=== PATIENT | female | born 1955 | race Caucasian/White ===

== ENCOUNTER 2020-11-11 12:21 | Inpatient (IN) | payer MEDICARE ==
--- NOTE | 2020-11-11 13:08 | RAD ---
Exam: Chest one view HISTORY:Weakness Comparison: None FINDINGS: Cardiac silhouette: Normal Aorta: Unremarkable Pulmonary vessels: Normal Costophrenic angles: Clear LUNGS: Interstitial opacities in the lung bases. Pneumothorax: None Osseous abnormalities: None IMPRESSION: Bibasilar interstitial opacities.
[2020-11-11 13:15] LABS: #Basophils 0.1 thou/uL (0.0-0.2); #Eosinphils 0.2 thou/uL (0.0-0.7); #Lymphocytes 2.3 thou/uL (1.20-3.40); #Monocytes 1.7 thou/uL (0.11-0.59); #Neutrophils 13.6 thou/uL (1.40-6.50); %Basophils 0.4 % (0.0-1.0); %Lymphocytes 12.9 % (21.0-51.0); %Monocytes 9.3 % (0.0-10.0); %Neutrophils 76.4 % (42.0-75.0); Hemoglobin 9.7 g/dL (12.0-16.0); Mean Corpuscular HGB CONC 32.3 g/dL (32.0-36.0); Mean Platelet Volume 7.5 fL (7.4-10.4); Platelet Count 662 thou/uL (130-400); RBC Distribution Width 14.7 % (11.5-14.5); Red Blood Cell (RBC) Count 3.35 mill/uL (4.20-5.40); White Blood Cell (WBC) Count 17.8 thou/uL (4.8-10.8)
[2020-11-11 13:37] LABS: ALT (SGPT) 47 U/L (8-55); AST (SGOT) 60 U/L (5-34); Albumin 3.8 g/dL (3.4-4.8); Alkaline Phosphatase 78 U/L (40-110); Anion Gap 17 mmol/L (10-20); BUN (Urea Nitrogen) 45 mg/dL (9.8-20.1); Bilirubin, Total 0.4 mg/dL (0.2-1.2); Calc. Creatinine Clearance 0 mL/min (70-130); Calcium 9.4 mg/dL (7.8-10.44); Carbon Dioxide 22 mmol/L (23-31); Chloride 103 mmol/L (98-107); Globulin 3.8 g/dL (2.4-3.5); Glucose 96 mg/dL (80-115); Magnesium 2.2 mg/dL (1.6-2.6); Protein, Total 7.6 g/dL (6.0-8.3); Sodium 138 mmol/L (136-145)
[2020-11-11 14:01] LABS: Bacteria/HPF None Seen HPF (None Seen); Bilirubin Negative (Negative); Blood, Urine Negative (Negative); Clarity Clear (Clear); Glucose, Urine (Dipstick) Normal (Negative); Ketone, Urine Negative (Negative); Leukocyte 25 Leu/uL (Negative); Nitrite Negative (Negative); Protein, Urine (Dipstick) Negative (Neg-Trace); RBC/HPF 0-3 HPF (0-3); Specific Gravity, Urine 1.018 (1.002-1.036); Urobilinogen Normal mg/dL (Less than 2); WBC/HPF 0-3 HPF (0-3)
--- NOTE | 2020-11-11 14:51 | RAD ---
XR Foot Rt 3 View STANDARD History: Evaluate for osteomyelitis Comparison: None. Findings: Soft tissue swelling along the proximal tuberosity fifth metatarsal. Old stress changes flaca ng the lateral fifth metatarsal diaphysis. No acute displaced fracture or malalignment. Erosive change of the distal phalanx tuft middle toe. Rahman perficial radiopaque punctate opacity along the medial aspect distal phalanx middle toe. Impression: 1. Soft tissue swelling along the fifth proximal tuberosity without underlying evidence of osteomyeli tis. MRI recommended if clinically warranted. 2. Tuft erosion distal phalanx middle toe may be chronic as erosions appear well-corticated. 3. Healing/healed stress changes along the mid aspect small toe metatarsal diaphysis.
[2020-11-11] MEDS ORDERED: Cefepime 1 GM VIAL ONE (15:14)
[2020-11-11] MEDS ORDERED: traMADol HCl 50 MG TAB ONE (15:14)
--- NOTE | 2020-11-11 15:53 | PDOC.FPRHP ---
- History of Present Illness Chief Complaint: weakness History of Present Illness: Pt is a 65 yo F with PMH of HTN, CKD3, CHF, neuropathy, hypothryoidism, chronic pain, anxiety who presents to the ED with chief complaint of weakness. Her home health nurse found her today covered in her feces, in the same spot that they left her after visiting her yesterday. She endorses diarrhea. She is a poor historian and has a sad/flat affect. Denies CP, abdominal pain, no blood in stool, no cough. She ambulates as baseline with the help of a walker. She endorses medicine compliance. She was recently released from [facility] where she was hospitalized for a UTI. ED Course: In the ED, patient initially sat'ing 100% on RA. Upon re-eval by ED provider, patient noted to be 90% and placed on 2L NC with improvement to 98%. Initially tachycardic with HR 100s, now 90s. Given Cefepime and Vanc. Also given tramadol 50 mg for chronic pain. - Allergies/Adverse Reactions Allergies Allergy/AdvReac Type Severity Reaction Status Date / Time loratadine [From Claritin] Allergy Verified 11/11/20 15:51 Penicillins Allergy Verified 11/11/20 15:50 - History PMHx: HTN, CKD3, CHF, neuropathy, hypothryoidism, chronic pain, anxiety PSHx: denies FHx: non contributory Social: Lives at home alone with HH. denies alcohol,drugs or tobacco - Review of Systems General: reports: fatigue. denies: fever/chills, weight/appetite/sleep changes Eyes: denies: eye pain, vision changes ENT: denies: nasal congestion, rhinorrhea Respiratory: denies: cough, shortness of breath Cardiovascular: denies: chest pain, palpitation Gastrointestinal: denies: nausea, vomiting Genitourinary: denies: dysuria, polyuria Skin: denies: jaundice, itching Neurological: reports: weakness. denies: syncope Psychological: reports: anxiety (history of), depression (history of) - Vital signs BP 135.69, HR 106, RR 17, Temp 98.7F, O2 sat 96% on 2L, 117kg - Physical Exam -Constitutional: dishelved. patient is dry on exam HEENT: normocephalic and atraumatic, EOMI, grossly normal hearing, other (pupils dilated, but reactive to light) Neck: supple, FROM Heart: normal S1/S2, other (b/l edema 2+ pitting up to the knees. tachycardic) Lungs: CTAB, no respiratory distress Abdomen: soft, non-tender Musculoskeletal: normal structure, normal tone Neurological: no focal deficit, CN II-XII intact -Skin: mild redness of b/l LE. multiple pressure ulcers Heme/Lymphatic: no purpura, no petechia -Psychiatric: flat and sad affect. poor historian FMR H&P: Results - Labs Result Diagrams: 11/11/20 13:04 11/11/20 13:04 Lab results: WBC 17.8 thou/uL (4.8-10.8) H 11/11/20 13:04 Hgb 9.7 g/dL (12.0-16.0) L 11/11/20 13:04 Hct 30.2 % (36.0-47.0) L 11/11/20 13:04 MCV 90.0 fL (78.0-98.0) 11/11/20 13:04 Plt Count 662 thou/uL (130-400) H 11/11/20 13:04 Neutrophils % 76.4 % (42.0-75.0) H 11/11/20 13:04 Sodium 138 mmol/L (136-145) 11/11/20 13:04 Potassium 4.0 mmol/L (3.5-5.1) 11/11/20 13:04 Chloride 103 mmol/L (98-107) 11/11/20 13:04 Carbon Dioxide 22 mmol/L (23-31) L 11/11/20 13:04 BUN 45 mg/dL (9.8-20.1) H 11/11/20 13:04 Creatinine 1.75 mg/dL (0.6-1.1) H 11/11/20 13:04 Glucose 96 mg/dL (80-115) 11/11/20 13:04 Lactic Acid 1.2 mmol/L (0.5-2.2) 11/11/20 14:11 Calcium 9.4 mg/dL (7.8-10.44) 11/11/20 13:04 Total Bilirubin 0.4 mg/dL (0.2-1.2) 11/11/20 13:04 AST 60 U/L (5-34) H 11/11/20 13:04 ALT 47 U/L (8-55) 11/11/20 13:04 Alkaline Phosphatase 78 U/L (40-110) 11/11/20 13:04 B-Natriuretic Peptide 169.2 pg/mL (0-100) H 11/11/20 13:04 Serum Total Protein 7.6 g/dL (6.0-8.3) 11/11/20 13:04 Albumin 3.8 g/dL (3.4-4.8) 11/11/20 13:04 Urine Ketones Negative mg/dL (Negative) 11/11/20 13:40 Urine Blood Negative (Negative) 11/11/20 13:40 Urine Nitrite Negative (Negative) 11/11/20 13:40 Ur Leukocyte Esterase 25 Jigna/uL (Negative) A 11/11/20 13:40 Urine RBC 0-3 HPF (0-3) 11/11/20 13:40 Urine WBC 0-3 HPF (0-3) 11/11/20 13:40 Ur Squamous Epith Cells 11-20 HPF (0-3) A 11/11/20 13:40 Urine Bacteria None Seen HPF (None Seen) 11/11/20 13:40 - EKG Interpretation EKG: Sinus tachycardia at 112, no ST segment changes - Radiology Interpretation Chest x-ray Status: report reviewed by me Additional comment: bibasilar interstitial opacities FMR H&P: A/P - Plan Sepsis 2/2 to hospital acquired PNA vs wounds -patient meets sepsis criteria with CXR showing bibasilar interstitial opacities, WBC of 17.8, tachycardia to 105 -UA neg -received Vanc and Cefepime in ED, cultures pending -1L of NS in ED, will continue MIVF as patient was dry on exam -procal pending -COVID negative -Continue Cefepime, Vanc, Levofloxacin for HAP Chronic right plantar ulcer -follow up with outpatient podiatry -foot XR shows soft tissue swelling along fifth proximal tuberosity with no evidence of osteo -wound care consulted. she also has several other pressure ulcers -could also be contributing to her sepsis picture B/l LE edema -history of CHF, patient unsure of Lasix dose she takes at home -unsure if history of DVT -also has redness of b/l legs, likely chronic stasis. Unlikely bilateral cellulitis -will follow up with dopplers Normocytic Anemia -Hgb of 9.7 on admission -follow up iron studies Diarrhea -C diff stool studies pending -precautions until then HTN -aware, continue home meds CKD3 -aware, avoid nephrotoxic meds as able -Cr elevated on admission, unsure of baseline CHF -aware, continue home meds -unsure of patient's last echo Neuropathy -aware, continue home meds Hypothryoidism -aware, continue home meds Chronic pain -aware, continue home meds Anxiety -aware, continue home meds Diet: HH, dietary consult pending Fluids: LR @ 100mL/hr DVT ppx: Lovenox Code: MEDS ONLY PCP: kelly Stewart call Dispo: admit to inpatient tele. Anticipate LOS > 48 hours. PT, OT wound care, CM and palliative to assist in dispo planning to IP rehab FMR H&P: Upper Level - Plan Date/Time: 11/11/20 2083 I, [Nidia Tian], have evaluated this patient and agree with findings/plan as outlined by credit intern resident. Pertinent changes/additions are listed here. 65 yo F with PMH of HF, depression/anxiety, HTN presents after being found by home health on the ground where they last left her in 24 hours before covered in feces. She was recently discharged from [facility] a week ago for treatment of UTI. Per ERMD SpO2 dropped to 90% on RA and was placed on 2L of oxygen. CXR shows bibasilar interstitial opacities. She was tachycardic with elevated WBC so was given vanc & cefepime. Also with a right foot ulcer that podiatry follows with her in which R foot XR shows soft tissue swelling of 5th metatarsal but no evidence of osteomyelitis. She has multiple moisture associated skin wounds that the patient cannot tell me how long shes had. Her left lower extremity has 3+ edema with associated redness and tenderness. #Sepsis 2/2 hospital acquired pneumonia vs. Cellulitis/skin wounds: Tachycardic, leukocytosis- CXR with bilateral bibasilar infiltrates and multiple skin ulcers. Lower legs with erythema Given Vanc & Cefepime & in ER and will continue to cover for hospital acquired PNA adding on levaquin. Pending procal. Patient requiring 2L of O2 but able to wean to 95% on RA while in room. Continue monitoring respiratory status. BCx pending. #BARB vs. CKD: Cr 1.75, no prior labs. Will start fluids and see if improves in AM. #Anemia: Hgb 9.7. Acute vs. chronic. Iron studies #Thrombocytosis: Plt 662. No clinical sxs. Monitor with CBC. #LE swelling: Left leg greater than right. Will get ddimer & bilateral venous dopplers. Also consider cellulitis vs. chronic venous stasis. Empirically treating for cellulitis & getting dopplers to r/o DVT #Diarrhea: Recent abx use for prior UTIs. Cdiff and stool cultures pending. #Physical deconditioning: CM on board, plan for placement for rehab. PT/OT on board. #HF: Continue home meds ,monitor clinical status Admit: tele/inpt dvt ppx: lovenox Addendum - Attending - Attending Attestation Date/Time: 11/11/202020 I personally evaluated the patient and discussed the management with Dr. Fernando. I agree with the History, Examination, Assessment and Plan documented above with any addition or exceptions noted below. The patient presented with weakness after being found covered in feces by home h ealth. She has numerous skin ulcerations which are the likely source of infection. cultures pending. Wound care is being consulted. Pt's trops are in nstemi range. Will continue to trend and anticoagulate the patient. Getting D- dimer and lower extremity dopplers to evaluate discrepancy in leg size. Will get stool for c.diff for diarrhea. Will need cardiology consult in a.m. Monitor on telemetry.
[2020-11-11] MEDS ORDERED: Ondansetron ODT 4 MG TAB PO PRN (17:24)
[2020-11-11] MEDS ORDERED: Ondansetron PF 4 MG/2 ML Vial IVP PRN (17:24)
[2020-11-11] MEDS ORDERED: Acetaminophen 650 MG Suppository PR PRN (17:24)
[2020-11-11 17:27] LABS: SARS-CoV-2 NAA Rapid Test Not Detected (NotDetected)
[2020-11-11 17:54] LABS: Amphetamine Not Detected (NotDetected); Barbiturates Screen Not Detected (NotDetected); Benzodiazepine Screen Not Detected (NotDetected); Cocaine Metabolite Screen Not Detected (NotDetected); Medtox Control Line Valid? VALID (VALID); Medtox Reader # READER 4; Methadone Not Detected (NotDetected); Methamphetamine Not Detected (NotDetected); Opiate Screen Not Detected (NotDetected); Oxycodone Screen Not Detected (NotDetected); Phencyclidine (PCP) Not Detected (NotDetected); THC/Cannabinoid Screen Not Detected (NotDetected); Tricyclic Screen Not Detected (NotDetected)
[2020-11-11 18:07] LABS: Troponin I 0.772 ng/mL (< 0.028)
[2020-11-11 20:01] LABS: Hemoglobin A1c 5.3 % (4.0-6.0)
[2020-11-11 21:56] VITALS: BMI 49.5
[2020-11-11] MEDS: Acetaminophen 325 MG TAB PO PRN (22:23)
[2020-11-11] MEDS: Enoxaparin Sodium 120 MG/0.8 ML SYRINGE SC SCH (22:24)
[2020-11-11] MEDS: Lactated Ringer's 1,000 ML IV SCH (22:24)
--- NOTE | 2020-11-11 22:35 | ULT ---
EXAM: Bilateral lower extremity venous Doppler US HISTORY: bilateral lower extremity edema and pain FINDINGS: Grayscale, color-flow, Doppler evaluation, spectral analysis of the bilateral lower extremities venou s structures is performed with 2-D imaging. The bilateral common femoral, superficial femoral, popliteal, posterior tibial, proximal greater saphenous and profunda femoral veins are imaged. There is normal luminal compressibility, flow, and augmentation in the visualized deep venous structu res of the bilateral lower extremities. IMPRESSION: No evidence of a deep vein thrombosis in either lower extremity.
[2020-11-12] MEDS: Lactated Ringer's 1,000 ML IV SCH ×3 (02:24→13:30)
[2020-11-12] MEDS: Cefepime 2 GM in Sodium Chloride 0.9% 100 ML IVPB SCH (02:24)
[2020-11-12 04:57] LABS: #Basophils 0.1 thou/uL (0.0-0.2); #Eosinphils 0.2 thou/uL (0.0-0.7); #Lymphocytes 1.8 thou/uL (1.20-3.40); #Neutrophils 8.9 thou/uL (1.40-6.50); %Basophils 0.4 % (0.0-1.0); %Eosinophils 2.1 % (0.0-10.0); %Lymphocytes 14.5 % (21.0-51.0); %Monocytes 8.7 % (0.0-10.0); %Neutrophils 74.3 % (42.0-75.0); Hemoglobin 8.4 g/dL (12.0-16.0); Mean Corpuscular HGB CONC 32.1 g/dL (32.0-36.0); Mean Corpuscular Hemoglobin 29.2 pg (27.0-31.0); Mean Corpuscular Volume 91.1 fL (78.0-98.0); Mean Platelet Volume 7.6 fL (7.4-10.4); Platelet Count 534 thou/uL (130-400); RBC Distribution Width 14.7 % (11.5-14.5); Red Blood Cell (RBC) Count 2.89 mill/uL (4.20-5.40)
[2020-11-12 05:03] LABS: Iron 31 ug/dL (50-170); Iron Binding Capacity, Total 210 mcg/dL (265-497)
[2020-11-12 05:04] LABS: ALT (SGPT) 38 U/L (8-55); AST (SGOT) 66 U/L (5-34); Albumin 2.9 g/dL (3.4-4.8); Alkaline Phosphatase 63 U/L (40-110); Anion Gap 14 mmol/L (10-20); BUN (Urea Nitrogen) 39 mg/dL (9.8-20.1); Bilirubin, Total 0.4 mg/dL (0.2-1.2); Calc. Creatinine Clearance 80 mL/min (70-130); Calcium 8.6 mg/dL (7.8-10.44); Carbon Dioxide 23 mmol/L (23-31); Chloride 108 mmol/L (98-107); Globulin 3.3 g/dL (2.4-3.5); Glucose 88 mg/dL (80-115); Iron 33 ug/dL (50-170); Iron Binding Capacity, Total 209 mcg/dL (265-497); Potassium 4.5 mmol/L (3.5-5.1); Protein, Total 6.2 g/dL (6.0-8.3); Sodium 140 mmol/L (136-145)
--- NOTE | 2020-11-12 06:54 | PDOC.FM ---
- Subjective Subjective: Patient resting comfortably in bed this AM. Only complaints are neck and pain soreness. She denies CP, SOB, abdominal pain, extremity pain. B/l LE swelling is at baseline as per patient's report. - Objective MAR Reviewed: Yes Vital Signs & Weight: Vital Signs (12 hours) Temp Pulse Resp BP Pulse Ox 11/12/20 02:37 98.4 F 90 16 118/55 L 100 11/11/20 20:20 97.4 F L 99 16 120/77 97 11/11/20 20:00 98 Weight Weight 122.924 kg I&O: 11/10/20 11/11/20 11/12/20 06:59 06:59 06:59 Intake Total 1300 Output Total 550 Balance 750 Result Diagrams: 11/12/20 04:11 11/12/20 04:11 Phys Exam - Physical Examination Constitutional: NAD dry MM Neck: no JVD Respiratory: no wheezing Cardiovascular: RRR, no significant murmur Gastrointestinal: soft, non-tender, positive bowel sounds b/l LE edema Neurological: non-focal, moves all 4 limbs Psychiatric: normal affect, A&O x 3 Deviation from normal: b/l redness and warmth. non TTP. many pressure ulcers Dx/Plan - Plan Plan: Sepsis 2/2 to hospital acquired PNA vs wounds -patient meets sepsis criteria with CXR showing bibasilar interstitial opacities, WBC of 17.8, tachycardia to 105 -UA neg -received Vanc and Cefepime in ED, cultures pending -1L of NS in ED, will continue MIVF as patient was dry on exam -COVID negative -Continue Cefepime, Vanc, for possible infection. D/c Levofloxacin (11/12) Unlikely HAP as patient is on RA, procal neg, no resp symptoms NSTEMI -patient with elevated trop .01>.772>2.570 -denies CP -EKG with no ST changes -Cardiology consulted, appreciate the recs -on Therapeutic Lovenox Chronic right plantar ulcer -follow up with outpatient podiatry -foot XR shows soft tissue swelling along fifth proximal tuberosity with no evidence of osteo. Follow up MRI today. Continue on abx as noted above -wound care consulted. she also has several other pressure ulcers -could also be contributing to her sepsis picture -ESR, CRP pending B/l LE edema -history of CHF, patient unsure of Lasix dose she takes at home -unsure if history of DVT -also has redness of b/l legs, likely chronic stasis. Unlikely bilateral c ellulitis -b/l LE dopplers neg Normocytic Anemia -Hgb of 9.7 on admission -continue to trend with clinical signs of bleeding, H/H daily Diarrhea -C diff stool studies neg -precautions until then HTN -aware, continue home meds CKD3 -aware, avoid nephrotoxic meds as able -Cr elevated on admission, unsure of baseline CHF -aware, continue home meds -unsure of patient's last echo Neuropathy -aware, continue home meds Hypothryoidism -aware, continue home meds Chronic pain -aware, continue home meds Anxiety -aware, continue home meds Diet: HH, dietary consult pending Fluids: LR @ 100mL/hr DVT ppx: Th Lovenox Code: MEDS ONLY PCP: kelly Stewart call Dispo: admit to inpatient tele. Anticipate LOS > 48 hours. PT, OT wound care, CM and palliative to assist in dispo planning to IP rehab. pending cardiology recs for NSTEMI Addendum - Attending - Attending Attestation Date/Time: 11/12/20 6238 I personally evaluated the patient and discussed the management with Dr. Fernando. I agree with the History, Examination, Assessment and Plan documented above with any addition or exceptions noted below. The patient has a cardiology referral pending for NSTEMI. Wound care on board. Pt on antibiotics as wounds appear to be the source of the infection. Getting MRI to evaluate for osteomyelitis.
[2020-11-12] MEDS ORDERED: Enoxaparin Sodium 30 MG/0.3 ML SYRINGE SC SCH ×2 (09:00)
[2020-11-12] MEDS ORDERED: Vancomycin HCl 1.75 GM in Sodium Chloride 0.9% 250 ML 300 ML IVPB SCH (09:00)
[2020-11-12] MEDS ORDERED: Methocarbamol 500 MG TAB PO PRN (10:23)
[2020-11-12] MEDS ORDERED: Pregabalin 75 MG CAP PO SCH (10:45)
--- NOTE | 2020-11-12 11:58 | MRI ---
MRI Lower Ext No Jt Rt WO Con History: Osteomyelitis evaluation Comparison: Radiograph prior day Findings: Bones: No T1 marrow signal replacement to suggest osteomyelitis. No significant erosions. Soft tissues: Plantar lateral soft tissue with adjacent to the fifth metatarsal proximal tuberosity. Although evaluation is limited without intravenous contrast, no large volume adrenal abscess is appreciated. Muscles: Diabetic myositis. No no definite pyomyositis. Impression: Plantar lateral soft tissue wound of the midfoot without underlying osteomyelitis.
[2020-11-12] MEDS: traMADol HCl 50 MG TAB PO PRN ×2 (13:29→20:27)
[2020-11-12] MEDS ORDERED: Loperamide HCl 1 MG/7.5 ML UDCUP PO PRN (14:11)
[2020-11-12] MEDS ORDERED: Vancomycin HCl 1.25 GM in Sodium Chloride 0.9% 250 ML 250 ML IVPB SCH (15:00)
[2020-11-12] MEDS: Gemfibrozil 600 MG TAB PO SCH (15:37)
[2020-11-12] MEDS: Pregabalin 75 MG CAP PO SCH ×2 (15:37→20:21)
[2020-11-12] MEDS: Famotidine 20 MG TAB PO SCH (20:19)
[2020-11-12] MEDS: Trospium 20 MG TAB PO SCH (20:19)
[2020-11-12] MEDS: Gabapentin 100 MG CAP PO SCH (20:20)
[2020-11-12] MEDS: Acetaminophen 325 MG TAB PO PRN (20:26)
[2020-11-12] MEDS: Enoxaparin Sodium 120 MG/0.8 ML SYRINGE SC SCH (20:41)
[2020-11-13] MEDS: Lactated Ringer's 1,000 ML IV SCH (03:28)
[2020-11-13 04:12] LABS: #Basophils 0.1 thou/uL (0.0-0.2); #Eosinphils 0.4 thou/uL (0.0-0.7); #Lymphocytes 2.2 thou/uL (1.20-3.40); #Monocytes 1.3 thou/uL (0.11-0.59); #Neutrophils 7.9 thou/uL (1.40-6.50); %Basophils 0.6 % (0.0-1.0); %Eosinophils 3.5 % (0.0-10.0); %Lymphocytes 18.6 % (21.0-51.0); %Monocytes 10.7 % (0.0-10.0); %Neutrophils 66.7 % (42.0-75.0); Hemoglobin 8.5 g/dL (12.0-16.0); Mean Corpuscular Hemoglobin 29.5 pg (27.0-31.0); Mean Corpuscular Volume 92.2 fL (78.0-98.0); Mean Platelet Volume 8.2 fL (7.4-10.4); Platelet Count 457 thou/uL (130-400); RBC Distribution Width 14.5 % (11.5-14.5); Red Blood Cell (RBC) Count 2.87 mill/uL (4.20-5.40); White Blood Cell (WBC) Count 11.8 thou/uL (4.8-10.8)
[2020-11-13] MEDS: Cefepime 2 GM in Sodium Chloride 0.9% 100 ML IVPB SCH (04:17)
[2020-11-13] MEDS: Levothyroxine Sodium 100 MCG TAB PO SCH (04:18)
[2020-11-13 04:22] LABS: ALT (SGPT) 29 U/L (8-55); AST (SGOT) 40 U/L (5-34); Albumin 2.8 g/dL (3.4-4.8); Alkaline Phosphatase 58 U/L (40-110); Anion Gap 14 mmol/L (10-20); BUN (Urea Nitrogen) 32 mg/dL (9.8-20.1); Bilirubin, Total 0.2 mg/dL (0.2-1.2); Calc. Creatinine Clearance 85 mL/min (70-130); Calcium 8.4 mg/dL (7.8-10.44); Carbon Dioxide 21 mmol/L (23-31); Chloride 107 mmol/L (98-107); Glucose 97 mg/dL (80-115); Potassium 4.7 mmol/L (3.5-5.1); Protein, Total 5.8 g/dL (6.0-8.3); Sodium 137 mmol/L (136-145)
--- NOTE | 2020-11-13 06:30 | PDOC.FM ---
- Subjective Subjective: Pt resting comfortably in bed this morning. Has mild msk pain, but no other complaints. She thinks diarrhea is better. Is willing to work with PT/OT - Objective MAR Reviewed: Yes Vital Signs & Weight: Vital Signs (12 hours) Temp Pulse Resp BP Pulse Ox 11/13/20 03:46 98 F 87 18 114/55 L 11/12/20 20:00 99.2 F 90 18 130/60 95 Weight Admit Weight 122.924 kg Weight 122.924 kg I&O: 11/11/20 11/12/20 11/13/20 06:59 06:59 06:59 Intake Total 1300 1550 Output Total 550 650 Balance 750 900 Result Diagrams: 11/13/20 03:38 11/13/20 03:38 Phys Exam - Physical Examination Constitutional: NAD Neck: no JVD, full ROM Respiratory: no wheezing, clear to auscultation bilateral Cardiovascular: RRR, no significant murmur Gastrointestinal: soft, non-tender, no distention, positive bowel sounds Musculoskeletal: no edema, pulses present Neurological: normal sensation, moves all 4 limbs Psychiatric: normal affect, A&O x 3 Deviation from normal: b/l redness in LE with overlying wound on left side. multiple skin wounds. Dx/Plan - Plan Plan: Sepsis likely 2/2 to wounds vs cellulitis, improved -patient meets sepsis criteria with CXR showing bibasilar interstitial opacities, WBC of 17.8, tachycardia to 105 on admission -UA neg -received Vanc and Cefepime in ED, cultures pending -1L of NS in ED, will continue MIVF for 1-2 bags as patient was dry on exam. -COVID negative -Continued Cefepime, Vanc, for possible infection (d/c 11/13). D/c Levofloxacin (11/12) Unlikely HAP as patient is on RA, procal neg, no resp symptoms -likely 2/2 soft tissue infection, will continue with IV Clindamycin (11/13) NSTEMI -patient with elevated trop .01>.772>2.570 -denies CP -EKG with no ST changes -Cardiology consulted, appreciate the recs -echo pending, will follow up with other recs as I could not find note stating plan -on Therapeutic Lovenox Chronic right plantar ulcer -follow up with outpatient podiatry -foot XR shows soft tissue swelling along fifth proximal tuberosity with no evidence of osteo. -MRI showed no evidence of osteomyelitis. Continue on abx as noted above -wound care consulted. she also has several other pressure ulcers -could also be contributing to her sepsis picture -ESR elevated, CRP pending B/l LE edema -history of CHF, patient unsure of Lasix dose she takes at home -unsure if history of DVT -also has redness of b/l legs, likely chronic stasis. Unlikely bilateral cellulitis -b/l LE dopplers neg Normocytic Anemia -Hgb of 9.7 on admission -continue to trend with clinical signs of bleeding, H/H daily Diarrhea -C diff stool studies neg -stool lactoferrin neg -immodium PRN HTN -aware, continue home meds CKD3 -aware, avoid nephrotoxic meds as able -Cr elevated on admission, unsure of baseline CHF -aware, continue home meds -unsure of patient's last echo Neuropathy -aware, continue home meds Hypothryoidism -aware, continue home meds Chronic pain -aware, continue home meds Anxiety -aware, continue home meds Diet: HH, dietary consult pending Fluids: KVO DVT ppx: Th Lovenox Code: MEDS ONLY PCP: kelly Stewart call Abx: Clindamycin IV Dispo: admit to inpatient tele. Anticipate LOS > 48 hours. PT, OT wound care, CM and palliative to assist in dispo planning to IP rehab. pending cardiology recs for NSTEMI Addendum - Attending - Attending Attestation Date/Time: 11/13/20 4921 I personally evaluated the patient and discussed the management with Dr. Fernando. I agree with the History, Examination, Assessment and Plan documented above with any addition or exceptions noted below. Continue wound care and antibiotics. Echo pending. Appreciate cardiology recs. Leukocytosis and creatinine improving.
[2020-11-13] MEDS: Furosemide 20 MG TAB PO SCH (08:02)
[2020-11-13] MEDS: Trospium 20 MG TAB PO SCH ×2 (08:02→20:54)
[2020-11-13] MEDS: Calcitriol 0.25 MCG CAP PO SCH (08:02)
[2020-11-13] MEDS: Lisinopril 10 MG TAB PO SCH (08:02)
[2020-11-13] MEDS: Citalopram 20 MG TAB PO SCH (08:03)
[2020-11-13] MEDS: Famotidine 20 MG TAB PO SCH ×2 (08:03→20:54)
[2020-11-13] MEDS: Pregabalin 75 MG CAP PO SCH ×3 (08:03→20:53)
[2020-11-13] MEDS: Gemfibrozil 600 MG TAB PO SCH ×2 (08:04→17:38)
--- NOTE | 2020-11-13 10:03 | CON ---
DATE OF CONSULTATION: 11/12/2020 REASON FOR CONSULTATION: [id number]. HISTORY OF PRESENT ILLNESS: Ms. Chloé Chapman is a 65-year-old woman, long-term patient of [facility]. The patient was recently hospitalized at [facility] with urosepsis. She was released home, but she was brought back after the home health nurse found her covered in feces in the same spot they left her in visiting the day before. The patient said she did not have chest pain or pressure. She is unable to really get up due to her level of weakness and obesity. She said she has been gradually gaining weight. She has multiple pressure sores. She says she has a history of heart failure, diagnosed a few years ago. She does not know if she has had any other cardiac evaluation. ALLERGIES: LORATADINE AND PENICILLIN. REVIEW OF SYSTEMS: CONSTITUTIONAL: Positive for weight gain. VISION: No changes. HEARING: No changes. PULMONARY: No cough or wheezing. CARDIAC: No chest pain. GASTROINTESTINAL: No nausea or vomiting. She has some diarrhea. SKIN: Pressure sores. PHYSICAL EXAMINATION: GENERAL: This is a very pleasant, but morbidly obese patient. VITAL SIGNS: She is 5 feet 2 inches tall, 271 pounds, BMI is 49.6. Blood pressure 116/56, pulse 90. HEENT: Eyes, sclerae are nonicteric. Mouth, mucous membranes are moist. NECK: Supple. No lymphadenopathy. LUNGS: Clear. CARDIAC: Normal S1, normal S2. I do not hear murmur, rub, or gallop, but her heart sounds are very distant due to the obesity. ABDOMEN: Severe obesity. ecchymosis at the site of the Lovenox injection. EXTREMITIES: Moderate to severe diffuse peripheral edema. PULSES: I do not feel pedal pulses, but she has a lot of edema. I cannot feel popliteal pulses, but she is tender in that area, cannot feel femoral pulses. LABORATORY DATA: Creatinine is 1.32, improved from 1.75. GFR was initially 29. Stage 4 renal failure, now it is down to stage 3 renal failure. Troponin 2.57. EKG; sinus rhythm, she has had some nonsustained ventricular tachycardia. There are no acute changes . ASSESSMENT: 1. Myocardial infarction type 2, demand ischemia. 2. Probable sepsis. 3. Probable underlying coronary artery disease. 4. Severe morbid obesity, BMI of nearly 50, it is 49.6. 5. Recent urosepsis. 6. Severe edema. 7. Probably heart failure, unknown whether systolic or diastolic. PLAN: 1. Echocardiogram pending. 2. She will probably need some diuretics to help with the edema. We will follow with you, probably treat conservatively. Prognosis is guarded in this patient. She has multiple problems including multiple pressure sores, very inactive, morbid obesity, stage 3 to 4 renal failure, recent urinary tract infection. Job ID: [id number]
[2020-11-13] MEDS: Lactinex Tablet PO SCH (11:10)
[2020-11-13] MEDS: Clindamycin/D5W 600 MG in Premix Bag 1 BAG IVPB SCH ×2 (14:51→20:55)
[2020-11-13] MEDS: Enoxaparin Sodium 120 MG/0.8 ML SYRINGE SC SCH (20:54)
[2020-11-13] MEDS: Gabapentin 100 MG CAP PO SCH (20:54)
[2020-11-14 04:40] LABS: #Basophils 0.1 thou/uL (0.0-0.2); #Eosinphils 0.5 thou/uL (0.0-0.7); #Lymphocytes 2.2 thou/uL (1.20-3.40); %Basophils 0.6 % (0.0-1.0); %Eosinophils 4.7 % (0.0-10.0); %Lymphocytes 22.9 % (21.0-51.0); %Monocytes 10.4 % (0.0-10.0); %Neutrophils 61.4 % (42.0-75.0); Hemoglobin 8.3 g/dL (12.0-16.0); Mean Corpuscular HGB CONC 31.8 g/dL (32.0-36.0); Mean Corpuscular Hemoglobin 28.9 pg (27.0-31.0); Mean Corpuscular Volume 90.8 fL (78.0-98.0); Mean Platelet Volume 8.3 fL (7.4-10.4); Platelet Count 470 thou/uL (130-400); RBC Distribution Width 14.7 % (11.5-14.5); Red Blood Cell (RBC) Count 2.86 mill/uL (4.20-5.40); White Blood Cell (WBC) Count 9.7 thou/uL (4.8-10.8)
[2020-11-14 04:49] LABS: ALT (SGPT) 23 U/L (8-55); AST (SGOT) 27 U/L (5-34); Albumin 2.8 g/dL (3.4-4.8); Alkaline Phosphatase 55 U/L (40-110); Anion Gap 12 mmol/L (10-20); BUN (Urea Nitrogen) 33 mg/dL (9.8-20.1); Bilirubin, Total 0.2 mg/dL (0.2-1.2); Calc. Creatinine Clearance 74 mL/min (70-130); Calcium 8.5 mg/dL (7.8-10.44); Carbon Dioxide 22 mmol/L (23-31); Cardiac Risk 2.7 (Less than 4.5); Chloride 105 mmol/L (98-107); Cholesterol 120 mg/dl (< 200 Desired); Globulin 3.1 g/dL (2.4-3.5); Glucose 90 mg/dL (80-115); HDL Cholesterol 44 mg/dL (>60 Neg Risk); LDL Cholesterol, Calculated 65 mg/dL; Potassium 4.9 mmol/L (3.5-5.1); Protein, Total 5.9 g/dL (6.0-8.3); Sodium 134 mmol/L (136-145); Triglycerides 56 mg/dL (Less than 150)
[2020-11-14] MEDS: Levothyroxine Sodium 100 MCG TAB PO SCH (05:15)
[2020-11-14] MEDS: Clindamycin/D5W 600 MG in Premix Bag 1 BAG IVPB SCH ×3 (05:15→21:23)
--- NOTE | 2020-11-14 06:34 | PDOC.FM ---
- Subjective Subjective: Pt resting comfortably in bed. No acute complaints this morning. Is willing to go to a rehab facility to get stronger - Objective MAR Reviewed: Yes Vital Signs & Weight: Vital Signs (12 hours) Temp Pulse Resp BP Pulse Ox 11/14/20 03:32 97.6 F 76 16 123/58 L 98 11/13/20 20:00 95 11/13/20 19:15 98.0 F 77 18 112/53 L 99 Weight Admit Weight 122.924 kg Weight 122.016 kg I&O: 11/12/20 11/13/20 11/14/20 06:59 06:59 06:59 Intake Total 1300 1550 1240 Output Total 550 650 800 Balance 750 900 440 Result Diagrams: 11/14/20 03:48 11/14/20 03:48 Phys Exam - Physical Examination Constitutional: NAD dry MM Neck: supple Respiratory: no wheezing, clear to auscultation bilateral Cardiovascular: RRR, no significant murmur Gastrointestinal: soft, non-tender, positive bowel sounds Musculoskeletal: no edema, pulses present Neurological: moves all 4 limbs Deviation from normal: LLE red, warm to the touch, overlying wound -: many pressure ulcers Dx/Plan - Plan Plan: Sepsis likely 2/2 to wounds vs cellulitis, improved -patient meets sepsis criteria with CXR showing bibasilar interstitial opacities, WBC of 17.8, tachycardia to 105 on admission -UA neg -received Vanc and Cefepime in ED, cultures pending -1L of NS in ED, will continue MIVF for 1-2 bags as patient was dry on exam. -COVID negative -Continued Cefepime, Vanc, for possible infection (d/c 11/13). D/c Levofloxacin (11/12) Unlikely HAP as patient is on RA, procal neg, no resp symptoms -likely 2/2 soft tissue infection, will continue with IV Clindamycin (11/13) NSTEMI -patient with elevated trop .01>.772>2.570 -denies CP -EKG with no ST changes -Cardiology consulted, appreciate the recs -echo: LV size mildly increased, EF 55-60%, tip of apex mildly hypokinetic, L atrium moderately dilated, mild mitral regurg, PA 46mmHg -on Therapeutic Lovenox Chronic right plantar ulcer -follow up with outpatient podiatry -foot XR shows soft tissue swelling along fifth proximal tuberosity with no evidence of osteo. -MRI showed no evidence of osteomyelitis. Continue on abx as noted above -wound care consulted. she also has several other pressure ulcers -could also be contributing to her sepsis picture -ESR, CRP elevated B/l LE edema -history of CHF, patient unsure of Lasix dose she takes at home -unsure if history of DVT -also has redness of b/l legs, likely chronic stasis. Unlikely bilateral cellulitis -b/l LE dopplers neg Normocytic Anemia -Hgb of 9.7 on admission -continue to trend with clinical signs of bleeding, H/H daily Diarrhea -C diff stool studies neg -stool lactoferrin neg -immodium PRN HTN -aware, continue home meds CKD3 -aware, avoid nephrotoxic meds as able -Cr elevated on admission, unsure of baseline CHF -aware, continue home meds -unsure of patient's last echo Neuropathy -aware, continue home meds Hypothryoidism -aware, continue home meds Chronic pain -aware, continue home meds Anxiety -aware, continue home meds Diet: HH, dietary consult pending Fluids: 500 cc bolus as patient is dry on exam DVT ppx: Th Lovenox Code: MEDS ONLY PCP: kelly Stewart call Abx: Clindamycin IV Dispo: admit to inpatient tele. Anticipate LOS > 48 hours. PT, OT wound care, CM and palliative to assist in dispo planning to IP rehab. pending cardiology recs for NSTEMI Addendum - Attending - Attending Attestation Date/Time: 11/14/20 1001 I personally evaluated the patient and discussed the management with Dr. Fernando. I agree with the History, Examination, Assessment and Plan documented above with any addition or exceptions noted below. Patient doing well on antibiotics. Consulting case mgmt for rehab vs snf placement. Continue wound care.
[2020-11-14] MEDS: traMADol HCl 50 MG TAB PO PRN ×2 (09:06→21:23)
[2020-11-14] MEDS: Acetaminophen 325 MG TAB PO PRN ×2 (09:06→21:28)
[2020-11-14] MEDS: Trospium 20 MG TAB PO SCH ×2 (09:07→21:23)
[2020-11-14] MEDS: Citalopram 20 MG TAB PO SCH (09:07)
[2020-11-14] MEDS: Pregabalin 75 MG CAP PO SCH ×3 (09:07→21:24)
[2020-11-14] MEDS: Lactinex Tablet PO SCH (09:07)
[2020-11-14] MEDS: Calcitriol 0.25 MCG CAP PO SCH (09:08)
[2020-11-14] MEDS: Gemfibrozil 600 MG TAB PO SCH (09:08)
[2020-11-14] MEDS: Famotidine 20 MG TAB PO SCH ×2 (09:08→21:23)
[2020-11-14] MEDS: Furosemide 20 MG TAB PO SCH (09:08)
[2020-11-14] MEDS: Lisinopril 10 MG TAB PO SCH (09:08)
[2020-11-14] MEDS: Lactated Ringer's 500 ML IV SCH ×2 (09:09→10:44)
[2020-11-14] MEDS: Lactated Ringer's 1,000 ML IV SCH ×2 (09:12→21:26)
--- NOTE | 2020-11-14 10:40 | PDOC.PALCO ---
Palliative Care Consult - Consult Details Requesting Physician: Dr Fernando Reason for Consult: goals of care, assistance with communication prognosis/disease, complex decision-making - Pertinent HPI 65 year old female who resides in the private home setting. She confirms recent decline in the home setting, not able to fully perform ADL. Sleeps in office chair, non ambulatory with multiple chronic morbidities. No current help other than home health. States she was "in the process" of having a daily caregiver for an hour. In conversation she confirms decrease in mobility and at times not able to ambulate with walker. Her Home health nurse found her on arrival covered in feces, in the same spot/location when she was seen the prior day. Negative for chest pain, discomfort, nausea, vomiting. EMS was activated and patient transported to [facility]. Noted to be tachycardic, and sating at 90%. Admitted for further evaluation and medical management. Patient states overall decline occured this past summer, increasing in June. She states she had "roommates" that lived with her, "was not a good situation". They have moved out, and causing a gap in assistance in relation to care/meals. - Social History Smoking Status: Never smoker Smoking: no tobacco exposure Alcohol Use: none Drug Use History: none Living Situation: independent - Medications MAR Reviewed: Yes - Allergies Allergies/Adverse Reactions: Allergies Allergy/AdvReac Type Severity Reaction Status Date / Time loratadine [From Claritin] Allergy Verified 11/11/20 15:51 Penicillins Allergy Verified 11/11/20 15:50 - Subjective Primary bed bound. Attempting to work with PT, walked 50ft with mild dyspnea 11/12. Pronounced weakness - ROS Constitutional: alert, weakness ENT: alteration in dentition, other (Denies difficulity swallowing) Respiratory: shortness of breath with extertion Cardiology: paroxysmal noc. dyspnea, other (Denies palpitation) Gastrointestinal: diarrhea Genitourinary: incontinence, stress incontinence Musculoskeletal: limited mobility Skin: wounds - Objective Vital Signs: Vital Signs - Most Recent Temp Pulse Resp BP Pulse Ox 98.1 F 86 16 112/55 L 96 11/14/20 09:06 11/14/20 09:06 11/14/20 09:06 11/14/20 09:06 11/14/20 09:06 Palliative Performance Scale: 40 - Physical Exam Constitutional: NAD, ill appearing HEENT: EOMI, moist MMs, PERRLA, poor dentition Respiratory: no wheezing, diminished lung sound Cardiovascular: RRR, diminished peripheral pulses Gastrointestinal: soft, non-tender, positive bowel sounds Deviation from normal: obese Genitourinary: incontinent Musculoskeletal: no cyanosis, no clubbing, diffuse muscle atrophy Neurology: moves all 4 limbs, no focal deficits Skin: cap refill <2 seconds, no lesions, no rash, fragile Deviation from normal: wounds as per photos Psychiatric: A&O x 3, normal affect, normal mood - Problem List (1) Sepsis Code(s): A41.9 - SEPSIS, UNSPECIFIED ORGANISM Current Visit: Yes Status: Acute (2) Anemia Code(s): D64.9 - ANEMIA, UNSPECIFIED Current Visit: Yes Status: Acute (3) Diarrhea Code(s): R19.7 - DIARRHEA, UNSPECIFIED Current Visit: Yes Status: Acute (4) CHF (congestive heart failure) Code(s): I50.9 - HEART FAILURE, UNSPECIFIED Current Visit: Yes Status: Acute (5) Chronic kidney disease, stage 3 Code(s): N18.30 - CHRONIC KIDNEY DISEASE, STAGE 3 UNSPECIFIED Current Visit: Yes Status: Acute (6) Palliative care encounter Code(s): Z51.5 - ENCOUNTER FOR PALLIATIVE CARE Current Visit: Yes Status: Acute (7) Declining functional status Code(s): R53.81 - OTHER MALAISE Current Visit: Yes Status: Acute - Plan/Recommendations Plan: Overall desire is to return to home setting. Her cat "Firefly" is the most important to her. Discussed transition to assisted living/skilled may be optimal as she would require greater than one hour of care. Consideration may be to seek eval with [facility] as they allow cats. Transition to rehab/skilled then to assisted living. Please also refer to Palliative care notes in note section. Emotional support and therapeutic listening. [55] minutes spent on this encounter with >50% of the time in counseling and coordination of care. Thank you for this very appropriate consult.
[2020-11-14] MEDS ORDERED: Aspirin 81 mg Enteric Coated Tablet PO SCH (13:00)
[2020-11-14] MEDS: Multivitamins CHEW w/Iron Tablet PO SCH (13:23)
--- NOTE | 2020-11-14 13:41 | PRG ---
DATE OF SERVICE: SUBJECTIVE: Ms. Chapman offers no complaints. She was sleeping when I came in the room. She awakens easily. She denies chest pain or pressure. She is very inactive. OBJECTIVE: VITAL SIGNS: Her blood pressure 128/60, pulse 70. LUNGS: Clear. CARDIAC: Normal S1, normal S2. HEART: Sounds are distant due to the obesity. No murmur, rub, or gallop. ABDOMEN: Obese, nontender. EXTREMITIES: No clubbing or cyanosis. There is moderate edema, looks chronic. PERTINENT LABORATORY DATA: Potassium is 4.9, creatinine 1.42, GFR is 37. Stage 3 renal failure. Echocardiogram revealed ejection fraction 55% to 60%, some elevation of pulmonary artery pressure. ASSESSMENT: 1. Status post [id number] myocardial infarction, likely demand ischemia. 2. Morbid obesity with body mass index of 49.2. 3. Appears to have peripheral vascular disease. I cannot palpate any pedal pulses. I do not feel femoral pulses either, but that may be largely related to the severe obesity. 4. Stage 3 renal failure. 5. Probable underlying coronary disease. PLAN: Conservative medical therapy appears to be the best option at this point with the following; 1. Aspirin daily. 2. Reduce Lovenox to DVT prophylaxis dose. 3. Continue lisinopril. 4. Statins. The patient understands and support to try to lose weight. Otherwise, I am afraid the prognosis is not favorable long-term. From my standpoint, the patient could be sent to a facility whenever it is feasible, it looks unlikely she will be able to take care of herself at home. Job ID: [id number]
[2020-11-14] MEDS ORDERED: Enoxaparin Sodium 120 MG/0.8 ML SYRINGE SC SCH (21:00)
[2020-11-14] MEDS: Rosuvastatin 20 MG TAB PO SCH (21:23)
[2020-11-14] MEDS: Gabapentin 100 MG CAP PO SCH (21:25)
[2020-11-15] MEDS: traMADol HCl 50 MG TAB PO PRN ×2 (03:16→13:48)
[2020-11-15] MEDS: Acetaminophen 325 MG TAB PO PRN ×2 (03:17→13:51)
[2020-11-15 04:46] LABS: #Basophils 0.1 thou/uL (0.0-0.2); #Eosinphils 0.5 thou/uL (0.0-0.7); #Monocytes 0.9 thou/uL (0.11-0.59); #Neutrophils 4.7 thou/uL (1.40-6.50); %Eosinophils 5.9 % (0.0-10.0); %Lymphocytes 24.1 % (21.0-51.0); %Monocytes 10.6 % (0.0-10.0); %Neutrophils 58.4 % (42.0-75.0); Hemoglobin 8.9 g/dL (12.0-16.0); Mean Corpuscular HGB CONC 32.5 g/dL (32.0-36.0); Mean Corpuscular Hemoglobin 29.4 pg (27.0-31.0); Mean Corpuscular Volume 90.5 fL (78.0-98.0); Platelet Count 501 thou/uL (130-400); RBC Distribution Width 14.7 % (11.5-14.5); Red Blood Cell (RBC) Count 3.03 mill/uL (4.20-5.40); White Blood Cell (WBC) Count 8.1 thou/uL (4.8-10.8)
[2020-11-15] MEDS: Clindamycin/D5W 600 MG in Premix Bag 1 BAG IVPB SCH (05:10)
[2020-11-15] MEDS: Levothyroxine Sodium 100 MCG TAB PO SCH (05:11)
[2020-11-15 05:30] LABS: ALT (SGPT) 20 U/L (8-55); AST (SGOT) 21 U/L (5-34); Albumin 2.9 g/dL (3.4-4.8); Alkaline Phosphatase 57 U/L (40-110); Anion Gap 15 mmol/L (10-20); BUN (Urea Nitrogen) 33 mg/dL (9.8-20.1); Bilirubin, Total 0.2 mg/dL (0.2-1.2); Calc. Creatinine Clearance 87 mL/min (70-130); Calcium 8.7 mg/dL (7.8-10.44); Carbon Dioxide 23 mmol/L (23-31); Globulin 3.2 g/dL (2.4-3.5); Glucose 86 mg/dL (80-115); Potassium 4.9 mmol/L (3.5-5.1); Protein, Total 6.1 g/dL (6.0-8.3)
[2020-11-15 06:04] LABS: Chloride 104 mmol/L (98-107); Sodium 137 mmol/L (136-145)
--- NOTE | 2020-11-15 06:47 | PDOC.FM ---
- Subjective Subjective: Patient resting comfortably in bed. No new complaints. Agreeable to SNF on discharge - Objective MAR Reviewed: Yes Vital Signs & Weight: Vital Signs (12 hours) Temp Pulse Resp BP Pulse Ox 11/15/20 03:58 98.3 F 66 20 132/65 96 11/14/20 20:00 98.1 F 74 18 112/55 L 98 Weight Admit Weight 122.924 kg Weight 55.021 kg I&O: 11/13/20 11/14/20 11/15/20 06:59 06:59 06:59 Intake Total 1550 1240 1650 Output Total 911 482 8556 Balance 900 440 -600 Result Diagrams: 11/15/20 03:58 11/15/20 03:58 Phys Exam - Physical Examination Constitutional: NAD dry MM Neck: full ROM Respiratory: no wheezing, clear to auscultation bilateral Cardiovascular: RRR, no significant murmur Gastrointestinal: soft, non-tender, positive bowel sounds trace edema b/l LE Neurological: moves all 4 limbs Psychiatric: normal affect, A&O x 3 Deviation from normal: improvement of LLE redness, warmth Dx/Plan - Plan Plan: Sepsis likely 2/2 to wounds vs cellulitis, improved -patient meets sepsis criteria with CXR showing bibasilar interstitial opacities, WBC of 17.8, tachycardia to 105 on admission -UA neg -received Vanc and Cefepime in ED, cultures pending -1L of NS in ED, will continue MIVF for 1-2 bags as patient was dry on exam. -COVID negative -Continued Cefepime, Vanc, for possible infection (d/c 11/13). D/c Levofloxacin (11/12) Unlikely HAP as patient is on RA, procal neg, no resp symptoms -likely 2/2 soft tissue infection of LLE vs various wounds, will continue with Clindamycin (11/13), will transition to PO 11/15 NSTEMI -patient with elevated trop .01>.772>2.570 -denies CP -EKG with no ST changes -Cardiology consulted, appreciate the recs: medical management -echo: LV size mildly increased, EF 55-60%, tip of apex mildly hypokinetic, L atrium moderately dilated, mild mitral regurg, PA 46mmHg -on Therapeutic Lovenox initially, transitioned to normal ppx 11/14 as per cards Chronic right plantar ulcer -follow up with outpatient podiatry -foot XR shows soft tissue swelling along fifth proximal tuberosity with no evidence of osteo. -MRI showed no evidence of osteomyelitis. Continue on abx as noted above -wound care consulted. she also has several other pressure ulcers -could also be contributing to her sepsis picture -ESR, CRP elevated B/l LE edema -history of CHF, patient unsure of Lasix dose she takes at home -unsure if history of DVT -also has redness of b/l legs, likely chronic stasis. Unlikely bilateral cellulitis -b/l LE dopplers neg Normocytic Anemia -Hgb of 9.7 on admission -continue to trend with clinical signs of bleeding, H/H daily Diarrhea -C diff stool studies neg -stool lactoferrin neg -immodium PRN HTN -aware, continue home meds CKD3 -aware, avoid nephrotoxic meds as able -Cr elevated on admission, unsure of baseline CHF -aware, continue home meds -unsure of patient's last echo Neuropathy -aware, continue home meds Hypothryoidism -aware, continue home meds Chronic pain -aware, continue home meds Anxiety -aware, continue home meds Diet: HH, dietary consult pending Fluids: LR at 50mL/hr as patient has dry MM DVT ppx: Lovenox Code: MEDS ONLY PCP: kelly Stewart call Abx: Clindamycin PO Dispo: admit to inpatient tele. Anticipate LOS > 48 hours. PT, OT wound care, CM and palliative to assist in dispo planning to IP rehab vs SNF. Follow cardiology recs: medical management. Ready for discharge, pending CM placement Addendum - Attending - Attending Attestation Date/Time: 11/15/20 3486 I personally evaluated the patient and discussed the management with Dr. Fernando. I agree with the History, Examination, Assessment and Plan documented above with any addition or exceptions noted below.
[2020-11-15] MEDS: Lisinopril 10 MG TAB PO SCH (09:35)
[2020-11-15] MEDS: Lactinex Tablet PO SCH (09:36)
[2020-11-15] MEDS: Calcitriol 0.25 MCG CAP PO SCH (09:36)
[2020-11-15] MEDS: Citalopram 20 MG TAB PO SCH (09:36)
[2020-11-15] MEDS: Famotidine 20 MG TAB PO SCH ×2 (09:36→20:11)
[2020-11-15] MEDS: Pregabalin 75 MG CAP PO SCH ×3 (09:36→20:10)
[2020-11-15] MEDS: Trospium 20 MG TAB PO SCH ×2 (09:38→20:10)
[2020-11-15] MEDS: Aspirin 81 mg Enteric Coated Tablet PO SCH (09:38)
[2020-11-15] MEDS: Enoxaparin Sodium 40 MG/0.4 ML SYRINGE SC SCH (09:38)
[2020-11-15] MEDS: Furosemide 20 MG TAB PO SCH (09:38)
[2020-11-15] MEDS: Clindamycin 150 MG CAP PO SCH ×2 (09:46→16:46)
[2020-11-15] MEDS: Multivitamins CHEW w/Iron Tablet PO SCH (12:20)
[2020-11-15] MEDS: Lactated Ringer's 1,000 ML IV SCH (16:49)
[2020-11-15] MEDS: Gabapentin 100 MG CAP PO SCH (20:09)
[2020-11-15] MEDS: Rosuvastatin 20 MG TAB PO SCH (20:10)
[2020-11-15 20:22] VITALS: TEMP 98.2
[2020-11-16] MEDS: Clindamycin 150 MG CAP PO SCH ×3 (00:15→16:34)
[2020-11-16] MEDS: traMADol HCl 50 MG TAB PO PRN (00:16)
[2020-11-16] MEDS: Acetaminophen 325 MG TAB PO PRN (00:18)
[2020-11-16] MEDS: Levothyroxine Sodium 100 MCG TAB PO SCH (05:54)
[2020-11-16 06:18] LABS: #Basophils 0.1 thou/uL (0.0-0.2); #Eosinphils 0.4 thou/uL (0.0-0.7); #Lymphocytes 2.1 thou/uL (1.20-3.40); #Neutrophils 5.4 thou/uL (1.40-6.50); %Basophils 0.6 % (0.0-1.0); %Eosinophils 4.4 % (0.0-10.0); %Lymphocytes 23.5 % (21.0-51.0); %Monocytes 10.7 % (0.0-10.0); %Neutrophils 60.7 % (42.0-75.0); Hemoglobin 9.2 g/dL (12.0-16.0); Mean Corpuscular HGB CONC 32.3 g/dL (32.0-36.0); Mean Corpuscular Hemoglobin 29.1 pg (27.0-31.0); Mean Corpuscular Volume 90.1 fL (78.0-98.0); Mean Platelet Volume 7.8 fL (7.4-10.4); Platelet Count 533 thou/uL (130-400); RBC Distribution Width 14.7 % (11.5-14.5); Red Blood Cell (RBC) Count 3.16 mill/uL (4.20-5.40); White Blood Cell (WBC) Count 8.9 thou/uL (4.8-10.8)
--- NOTE | 2020-11-16 06:21 | PDOC.FM ---
- Subjective Subjective: Patient resting comfortably in bed this morning. No acute complaints. - Objective MAR Reviewed: Yes Vital Signs & Weight: Vital Signs (12 hours) Temp Pulse Resp BP Pulse Ox 11/15/20 20:00 98.2 F 70 20 110/66 97 Weight Admit Weight 122.924 kg Weight 122.47 kg I&O: 11/14/20 11/15/20 11/16/20 06:59 06:59 06:59 Intake Total 1240 1650 1320 Output Total 800 2250 2000 Balance 440 -501 -615 Result Diagrams: 11/16/20 05:51 11/16/20 05:51 Phys Exam - Physical Examination Constitutional: NAD HEENT: moist MMs Neck: supple, full ROM Respiratory: no wheezing, clear to auscultation bilateral Cardiovascular: RRR, no significant murmur Gastrointestinal: soft, non-tender, positive bowel sounds Musculoskeletal: no edema Neurological: normal sensation, moves all 4 limbs Psychiatric: normal affect, A&O x 3 Deviation from normal: improved redness and warmth of LLE, multiple ulcers Dx/Plan - Plan Plan: Sepsis likely 2/2 to wounds vs cellulitis, improved -patient meets sepsis criteria with CXR showing bibasilar interstitial opacities, WBC of 17.8, tachycardia to 105 on admission -UA neg -received Vanc and Cefepime in ED, cultures pending -1L of NS in ED, will continue MIVF for 1-2 bags as patient was dry on exam. -COVID negative -Continued Cefepime, Vanc, for possible infection (d/c 11/13). D/c Levofloxacin (11/12) Unlikely HAP as patient is on RA, procal neg, no resp symptoms -likely 2/2 soft tissue infection of LLE vs various wounds, will continue with Clindamycin (11/13), will transition to PO 11/15 NSTEMI -patient with elevated trop .01>.772>2.570 -denies CP -EKG with no ST changes -Cardiology consulted, appreciate the recs: medical management -echo: LV size mildly increased, EF 55-60%, tip of apex mildly hypokinetic, L atrium moderately dilated, mild mitral regurg, PA 46mmHg -on Therapeutic Lovenox initially, transitioned to normal ppx 11/14 as per cards Chronic right plantar ulcer -follow up with outpatient podiatry -foot XR shows soft tissue swelling along fifth proximal tuberosity with no evidence of osteo. -MRI showed no evidence of osteomyelitis. Continue on abx as noted above -wound care consulted. she also has several other pressure ulcers -could also be contributing to her sepsis picture -ESR, CRP elevated B/l LE edema -history of CHF, patient unsure of Lasix dose she takes at home -unsure if history of DVT -also has redness of b/l legs, likely chronic stasis. Unlikely bilateral cellulitis -b/l LE dopplers neg Normocytic Anemia -Hgb of 9.7 on admission -continue to trend with clinical signs of bleeding, H/H daily Diarrhea -C diff stool studies neg -stool lactoferrin neg -immodium PRN HTN -aware, continue home meds CKD3 -aware, avoid nephrotoxic meds as able -Cr elevated on admission, unsure of baseline CHF -aware, continue home meds -unsure of patient's last echo Neuropathy -aware, continue home meds Hypothryoidism -aware, continue home meds Chronic pain -aware, continue home meds Anxiety -aware, continue home meds Diet: HH, dietary consult pending Fluids: KVO DVT ppx: Lovenox Code: MEDS ONLY PCP: kelly Stewart call Abx: Clindamycin PO Dispo: admit to inpatient tele. Anticipate LOS > 48 hours. PT, OT wound care, CM and palliative to assist in dispo planning to SNF. Follow cardiology recs: medical management. Ready for discharge, pending CM placement they sent referrals to [facility] - Attending - Attending Attestation Date/Time: 11/16/20 6921 I personally evaluated the patient and discussed the management with the team. I agree with the History, Examination, Assessment and Plan documented above with any addition or exceptions noted below. Denies fever, chills, chest pain, sob, nausea/vomiting or diarrhea.
[2020-11-16 06:45] LABS: ALT (SGPT) 16 U/L (8-55); AST (SGOT) 16 U/L (5-34); Albumin 2.9 g/dL (3.4-4.8); Alkaline Phosphatase 62 U/L (40-110); Anion Gap 13 mmol/L (10-20); BUN (Urea Nitrogen) 29 mg/dL (9.8-20.1); Bilirubin, Total 0.2 mg/dL (0.2-1.2); Calc. Creatinine Clearance 89 mL/min (70-130); Calcium 8.7 mg/dL (7.8-10.44); Carbon Dioxide 26 mmol/L (23-31); Chloride 103 mmol/L (98-107); Globulin 3.2 g/dL (2.4-3.5); Glucose 80 mg/dL (80-115); Potassium 5.2 mmol/L (3.5-5.1); Protein, Total 6.1 g/dL (6.0-8.3); Sodium 137 mmol/L (136-145)
[2020-11-16] MEDS: Trospium 20 MG TAB PO SCH (07:41)
[2020-11-16] MEDS: Famotidine 20 MG TAB PO SCH (07:41)
[2020-11-16] MEDS: Lactinex Tablet PO SCH (07:42)
[2020-11-16] MEDS: Aspirin 81 mg Enteric Coated Tablet PO SCH (07:42)
[2020-11-16] MEDS: Calcitriol 0.25 MCG CAP PO SCH (07:42)
[2020-11-16] MEDS: Furosemide 20 MG TAB PO SCH (07:42)
[2020-11-16] MEDS: Pregabalin 75 MG CAP PO SCH ×2 (07:42→15:28)
[2020-11-16] MEDS: Citalopram 20 MG TAB PO SCH (07:43)
[2020-11-16] MEDS: Enoxaparin Sodium 40 MG/0.4 ML SYRINGE SC SCH (07:43)
[2020-11-16] MEDS: Lisinopril 10 MG TAB PO SCH (07:43)
[2020-11-16 09:14] VITALS: BP 116/65
[2020-11-16] MEDS: Multivitamins CHEW w/Iron Tablet PO SCH (10:11)
[2020-11-16 12:11] LABS: Routine O & P Final report (.)
--- NOTE | 2020-11-17 11:21 | DIS ---
DATE OF ADMISSION: 11/11/2020 DATE OF DISCHARGE: 11/16/2020 DISCHARGE ATTENDING: Dr. Flores. CONSULTS: 1. Cardiology, Dr. Gleason. 2. Case Management. 3. Dietitian. 4. PT, OT, and Wound Care. 5. Palliative care. PRIMARY DIAGNOSIS: Sepsis secondary to wounds versus cellulitis. SECONDARY DIAGNOSES: 1. Hsv-[id number] elevation myocardial infarction. 2. Chronic right plantar ulcer. 3. Bilateral lower extremity edema. 4. Normocytic anemia. 5. Diarrhea. 6. Hypertension. 7. Chronic kidney disease 3. 8. Congestive heart failure. 9. Neuropathy. 10. Hypothyroidism. 11. Chronic pain. 12. Anxiety. DISCHARGE MEDICATIONS: 1. Clindamycin 450 mg p.o. t.i.d. for the remainder of her antibiotic course. 2. Crestor 20 mg p.o. at bedtime. 3. Aspirin 81 mg p.o. daily. 4. Famotidine 20 mg p.o. b.i.d. 5. Methocarbamol 500 mg p.o. at bedtime p.r.n. 6. Detrol LA 4 mg p.o. daily. 7. Lyrica 75 mg p.o. t.i.d. 8. Lisinopril 10 mg p.o. daily. 9. Levothyroxine 100 mcg p.o. daily. 10. Gemfibrozil 600 mg p.o. b.i.d. 11. Gabapentin 300 mg p.o. at bedtime. 12. Furosemide 20 mg p.o. daily. 13. Citalopram 40 mg p.o. daily. 14. Calcitriol 0.25 mcg p.o. daily. 15. Tramadol 50 mg p.o. t.i.d. p.r.n. Discontinued Medications: 1. Metronidazole 500 mg p.o. t.i.d. 2. Cefdinir 300 mg p.o. q.12 hours. HISTORY OF PRESENT ILLNESS/HOSPITAL COURSE: The patient is a 65-year-old female, past medical history of hypertension, CKD 3, CHF, neuropathy, hypothyroidism, chronic pain, anxiety, who presents to the ED with chief complaint of weakness. Her home health nurse found her day of admission, covered in her feces in the same spot she was seen previous the day before. She endorses diarrhea. She is a poor historian. Has a sad and flat affect. She denies chest pain, abdominal pain. No blood in her stool. No cough. She ambulates at baseline with the help of a walker. However, this has been difficult secondary to wounds on the bottom of her foot. She endorses medicine compliant. She was recently released from [facility] where she was hospitalized for UTI. In the ED, the patient initially was saturating 100% on room air and then upon re-evaluation, the patient was noted to be at 90% and placed on 2 L nasal cannula with improvement to 98%. Initially, she was tachycardic, the heart rate 100, improved to 90s on the ER. She was given cefepime and vancomycin and given tramadol 50 mg for chronic pain. The patient's sepsis resolved. Initially, it was thought that she may have hospital-acquired pneumonia. However, she further satted well on room air and had no respiratory complaints. Her UA was negative and white blood cell count was 17.8. Procalcitonin was negative and COVID was negative. Initially, the patient was started on cefepime, vancomycin, and levofloxacin for hospital-acquired pneumonia. However, this was changed to vancomycin and cefepime for a few days and then was continued with clindamycin as symptoms resolved and it was thought that sepsis was likely secondary to soft tissue infection. A troponin was drawn in the ER and initially was normal, however, repeat came back elevated up to 2.57. The patient never had any chest pain. An EKG was without ST changes. Cardiology was consulted and obtained an echo which showed left ventricle size mildly increased. EF of 55% to 60%, in the tip of the apex mildly hypokinetic. Cardiology proceeded the treatment with medical management. For patient's chronic ulcers, Wound Care followed up closely. For patient's lower extremity edema, bilateral lower extremity Doppler were obtained, which was negative and this edema improved as her cellulitis improved. The patient also complained of diarrhea, but C difficile and stool studies were negative and Imodium helped to improve her symptoms. Her chronic conditions were treated with her home medications. DISPOSITION: Stable. DISCHARGE INSTRUCTIONS: [facility] 2. Diet: Heart healthy diet. 3. Activity: Activity as tolerated with orthopedic limitation. 4. Followup: Follow up with Dr. Stewart, PCP within seven days and follow up with Cardiology, Dr. Gleason, outpatient. Job ID: [id number] MTDD
--- NOTE | 2020-11-20 19:36 | EKG ---
Test Reason : STAT Blood Pressure : / mmHG Vent. Rate : 093 BPM Atrial Rate : 093 BPM P-R Int : 156 ms QRS Dur : 074 ms QT Int : 356 ms P-R-T Axes : 085 006 040 degrees QTc Int : 442 ms Normal sinus rhythm Low voltage QRS Nonspecific ST and T wave abnormality Abnormal ECG Confirmed by BRETT NOYOLA MD ([id number]) on 11/20/2020 7:36:21 PM Referred By: Confirmed By:BRETT NOYOLA MD
== END 2020-11-16 18:08 | DRG 871 ==
LOC: ERS 12:21 → 2NO 15:50 → T4-A 11-15 11:33
PROVIDERS: ADMIT Student in an Organized Health Care Education/Training Program; ATTEND Hospitalist
DX: A41.9 Sepsis, unspecified organism (principal); L89.613 Pressure ulcer of right heel, stage 3; I21.A1 Myocardial infarction type 2; I13.0 Hypertensive heart and chronic kidney disease with heart failure and stage 1 through stage 4 chronic kidney disease, or unspecified chronic kidney disease; N17.9 Acute kidney failure, unspecified; L97.419 Non-pressure chronic ulcer of right heel and midfoot with unspecified severity; Z68.42 Body mass index [BMI] 45.0-49.9, adult; I47.2 Ventricular tachycardia; L03.90 Cellulitis, unspecified; Z51.5 Encounter for palliative care; Z20.822 Contact with and (suspected) exposure to COVID-19; L89.322 Pressure ulcer of left buttock, stage 2; I50.9 Heart failure, unspecified; E03.9 Hypothyroidism, unspecified; R19.7 Diarrhea, unspecified; D64.9 Anemia, unspecified; G89.29 Other chronic pain; I25.10 Atherosclerotic heart disease of native coronary artery without angina pectoris; E66.01 Morbid (severe) obesity due to excess calories; N18.30 Chronic kidney disease, stage 3 unspecified; F41.9 Anxiety disorder, unspecified; G62.9 Polyneuropathy, unspecified; F32.9 Major depressive disorder, single episode, unspecified; D47.3 Essential (hemorrhagic) thrombocythemia; Z88.0 Allergy status to penicillin; Z88.8 Allergy status to other drugs, medicaments and biological substances; Z79.899 Other long term (current) drug therapy
CPT/HCPCS: 0240U; 36415; 51701; 71045; 80053; 80061; 80306; 81003; 81015; 82270; 82728; 83036; 83540; 83550; 83605; 83630; 83735; 83880; 84145; 84484; 85025; 85379; 85520; 85652; 86140; 87040; 87081; 87086; 87177; 87324; 87449; 93005; 93010; 93306; 93970; 96365; 96367; J0692; J1650; J1956; J3370; J3490; J7030; J7050

== ENCOUNTER 2020-11-23 18:10 | Inpatient (IN) | payer MEDICARE ==
[2020-11-23 19:19] LABS: #Basophils 0.1 thou/uL (0.0-0.2); #Eosinphils 0.3 thou/uL (0.0-0.7); #Lymphocytes 2.9 thou/uL (1.20-3.40); #Monocytes 1.2 thou/uL (0.11-0.59); #Neutrophils 7.7 thou/uL (1.40-6.50); %Basophils 0.9 % (0.0-1.0); %Eosinophils 2.3 % (0.0-10.0); %Lymphocytes 23.9 % (21.0-51.0); %Monocytes 9.8 % (0.0-10.0); %Neutrophils 63.1 % (42.0-75.0); Hemoglobin 12.6 g/dL (12.0-16.0); Mean Corpuscular HGB CONC 31.5 g/dL (32.0-36.0); Mean Corpuscular Hemoglobin 28.1 pg (27.0-31.0); Mean Corpuscular Volume 89.2 fL (78.0-98.0); Mean Platelet Volume 7.7 fL (7.4-10.4); Platelet Count 537 thou/uL (130-400); RBC Distribution Width 15.3 % (11.5-14.5); Red Blood Cell (RBC) Count 4.49 mill/uL (4.20-5.40); White Blood Cell (WBC) Count 12.2 thou/uL (4.8-10.8)
--- NOTE | 2020-11-23 19:21 | RAD ---
RADIOGRAPH CHEST 1 VIEW: 11/23/20 HISTORY: 65-year-old female with chest pain. FINDINGS: There are no air space densities, pulmonary edema, pneumothorax, or cardiomegaly. The lateral costop hrenic angles are sharp. IMPRESSION: No acute cardiopulmonary findings. aracely [] POS: JIN
[2020-11-23 19:39] LABS: ALT (SGPT) 15 U/L (8-55); AST (SGOT) 21 U/L (5-34); Albumin 3.9 g/dL (3.4-4.8); Alkaline Phosphatase 81 U/L (40-110); Anion Gap 18 mmol/L (10-20); BUN (Urea Nitrogen) 50 mg/dL (9.8-20.1); Bilirubin, Total 0.4 mg/dL (0.2-1.2); Calc. Creatinine Clearance 0 mL/min (70-130); Calcium 9.9 mg/dL (7.8-10.44); Carbon Dioxide 20 mmol/L (23-31); Chloride 102 mmol/L (98-107); Globulin 4.1 g/dL (2.4-3.5); Glucose 87 mg/dL (80-115); Potassium 4.4 mmol/L (3.5-5.1); Sodium 136 mmol/L (136-145)
[2020-11-23 20:01] LABS: CKMB 1.5 ng/mL (0-6.6)
--- NOTE | 2020-11-23 20:01 | RAD ---
RIGHT SHOULDER: 11/23/20 Three views. HISTORY: Shoulder pain. No evidence of fracture or dislocation. AC joint normally aligned. Mild degenerative changes at the s houlder and AC joint. IMPRESSION: No acute findings. POS: TIGREW
[2020-11-23 20:02] LABS: Bilirubin Negative (Negative); Blood, Urine Negative (Negative); Clarity Clear (Clear); Glucose, Urine (Dipstick) Normal (Negative); Ketone, Urine Negative (Negative); Leukocyte 250 Leu/uL (Negative); Nitrite Negative (Negative); Protein, Urine (Dipstick) Negative (Neg-Trace); Specific Gravity, Urine 1.019 (1.002-1.036); Squamous Epithelial 0-3 HPF (0-3); Urobilinogen Normal mg/dL (Less than 2); Yeast-Budding 3+ HPF (None Seen); pH, Urine 5.5 (5.0-9.0)
--- NOTE | 2020-11-23 20:05 | CT ---
CT HEAD WITHOUT CONTRAST: 11/23/20 INDICATIONS: Fall with head injury. Nausea, vomiting. No comparison. Ventricles have normal size and position. There is no evidence of intracranial hemorrhage. No mass, e ean, or infarct. Mild chronic ischemic white matter changes. Paranasal sinuses and mastoids are wilfrido r. IMPRESSION: No acute abnormality. POS: AGW
[2020-11-23 20:11] LABS: Bacteria/HPF 1+ HPF (None Seen)
[2020-11-23] MEDS ORDERED: cefTRIAXone\\ROCEPHIN 1 GM VIAL ONE (20:36)
[2020-11-23] MEDS ORDERED: Fluconazole 100 MG TAB PO SCH (21:00)
--- NOTE | 2020-11-23 21:24 | PDOC.HHP ---
Hospitalist LAURY Nausea History of Present Illness: PCP; Dr. Stewart The patient is a 65-year-old female with a past medical history significant for CHF, HTN, HLD, hypothyroidism, peripheral neuropathy, OA/RA, CKD 3 that presents to the emergency department via EMS from [facility] for the above complaint. The patient reports that she has been in rehab for approximately 1 week after getting discharged from the hospital for "a touch of pneumonia" and diarrhea. She does not recall if she had C. difficile. She reports having skin breakdown located on her upper thighs and buttocks from a recent bout of diarrhea. She reports that it is healing "well". She reports having urinary discomfort and vaginal irritation for approximately 3 to 4 days. She reports that she has felt nauseated and vomited one time several days ago. She reports a decrease appetite and mild abdominal discomfort, located in the epigastric region for the past several days as well. While she felt that her symptoms were consistent with UTI, she states that her caregivers refused to check her urine. She is unhappy about this. She also reports right shoulder pain after being "picked up" by EMS. She is complaining of a constant, generalized headache that she described as mild. She did suffer from a recent fall. She denies any LOC or neck pain. She denies feeling chest pain, heart palpitations or swelling to her lower extremities. She denies feeling short of breath having a cough or wheezing. No history of DVT/PE. No known sick contacts. She tested negative for Covid today. She denies any fever or chills. ED Course: VITAL SIGNS SatNov 23, 2020 18:44 NICO Hudson Sarah BP: 102/70, MAP: 80, Pulse: 72, Resp: 16, Temp: 98.1 (Oral), O2 sat: 100 on (Room Air), Time: 11/23/2020 18:44. VITAL SIGNS SatNov 23, 2020 20:00 NICO Hudson Sarah BP: 127/62, MAP: 83, Pulse: 71, Resp: 17, Pain: 2, O2 sat: 100 on (Room Air), Time: 11/23/2020 20:00. VITAL SIGNS SatNov 23, 2020 21:09 NICO Taveras Jeffery BP: 166/69, MAP: 101, Pulse: 84, Resp: 18, O2 sat: 99 on (Room Air), Time: 11/23/2020 21:09. Medications: fluconazole 150 mg Oral Given 21:15 11/23/2020 cefTRIAXone injection 1 g IV Piggy Back Given 20:58 11/23/2020 sodium chloride 0.9 % intravenous 1 L IV Fluid Infusion Given 20:57 11/23/2020 Allergies/Adverse Reactions: Allergy/AdvReac Type Severity Reaction Status Date / Time loratadine [From Claritin] Allergy Verified 11/11/20 15:51 Penicillins Allergy Verified 11/11/20 15:50 Home Medications: Medication Instructions Recorded Confirmed Type Calcitriol [Rocaltrol] 0.25 mcg PO DAILY 11/11/20 11/11/20 History Citalopram Hydrobromide 40 mg PO DAILY 11/11/20 11/11/20 History [Citalopram HBr] Famotidine 20 mg PO BID 11/11/20 11/11/20 History Furosemide 20 mg PO DAILY 11/11/20 11/11/20 History Gabapentin 300 mg PO HS 11/11/20 11/11/20 History Gemfibrozil [Lopid] 600 mg PO BIDAC 11/11/20 11/11/20 History Levothyroxine Sodium 100 mcg PO DAILY 11/11/20 11/11/20 History [Levothyroxine] Lisinopril 10 mg PO DAILY 11/11/20 11/11/20 History Methocarbamol 500 mg PO HS PRN 11/11/20 11/11/20 History Pregabalin [Lyrica] 75 mg PO TID 11/11/20 11/11/20 History Tolterodine Tartrate [Detrol LA] 4 mg PO DAILY 11/11/20 11/11/20 History traMADol HCl [Tramadol HCl] 50 mg PO TID PRN 11/11/20 11/11/20 History Aspirin [Ecotrin Low Strength] 81 mg PO DAILY 30 Days #30 tab 11/16/20 Rx Clindamycin [Cleocin] 450 mg PO Q8H #3 cap 11/16/20 Rx Rosuvastatin [Crestor] 20 mg PO HS #30 tab 11/16/20 Rx Past History: PMHx: HTN, CKD 3, CHF, peripheral neuropathy, hypothyroidism, GERD, anxiety, back pain, OA/RA PSHx:Unknown, patient poor historian FHx: Noncontributory to this case. Social: Currently resides at inpatient rehab. Denies history of smoking, alcohol intake or illicit drug use. Hospitalist HPI ROS All other systems reviewed; all pertinent +/- noted in HPI/Subj Hospitalist Exam General Appearance: NAD, awake alert. negative: ill appearing General - other findings: Appears comfortable in bed, using her phone Eye: PERRL, anicteric sclera ENT: normocephalic atraumatic, moist mucosa Neck: supple, no lymphadenopathy Heart: RRR, no murmur, no gallops, no rubs, normal peripheral pulses Respiratory: CTAB, no wheezes, no rales, no ronchi, normal chest expansion, no tachypnea Gastrointestinal: soft, non-tender, non-distended, normal bowel sounds, no guarding, no rigidity Extremities: no cyanosis, no edema Neurological: cranial nerve grossly intact, no focal deficits Psychiatric: normal affect, A&O x 3 Hospitalist Results Result Diagrams: 11/23/20 19:07 11/23/20 19:07 Lab results: Laboratory Last Values WBC 12.2 thou/uL (4.8-10.8) H 11/23/20 19:07 RBC 4.49 mill/uL (4.20-5.40) 11/23/20 19:07 Hgb 12.6 g/dL (12.0-16.0) 11/23/20 19:07 Hct 40.1 % (36.0-47.0) 11/23/20 19:07 MCV 89.2 fL (78.0-98.0) 11/23/20 19:07 MCH 28.1 pg (27.0-31.0) 11/23/20 19:07 MCHC 31.5 g/dL (32.0-36.0) L 11/23/20 19:07 RDW 15.3 % (11.5-14.5) H 11/23/20 19:07 Plt Count 537 thou/uL (130-400) H 11/23/20 19:07 MPV 7.7 fL (7.4-10.4) 11/23/20 19:07 Neutrophils % 63.1 % (42.0-75.0) 11/23/20 19:07 Lymphocytes % 23.9 % (21.0-51.0) 11/23/20 19:07 Monocytes % 9.8 % (0.0-10.0) 11/23/20 19:07 Eosinophils % 2.3 % (0.0-10.0) 11/23/20 19:07 Basophils % 0.9 % (0.0-1.0) 11/23/20 19:07 Neutrophils # 7.7 thou/uL (1.40-6.50) H 11/23/20 19:07 Lymphocytes # 2.9 thou/uL (1.20-3.40) 11/23/20 19:07 Monocytes # 1.2 thou/uL (0.11-0.59) H 11/23/20 19:07 Eosinophils # 0.3 thou/uL (0.0-0.7) 11/23/20 19:07 Basophils # 0.1 thou/uL (0.0-0.2) 11/23/20 19:07 Sodium 136 mmol/L (136-145) 11/23/20 19:07 Potassium 4.4 mmol/L (3.5-5.1) 11/23/20 19:07 Chloride 102 mmol/L (98-107) 11/23/20 19:07 Carbon Dioxide 20 mmol/L (23-31) L 11/23/20 19:07 Anion Gap 18 mmol/L (10-20) 11/23/20 19:07 BUN 50 mg/dL (9.8-20.1) H 11/23/20 19:07 Creatinine 1.72 mg/dL (0.6-1.1) H 11/23/20 19:07 Estimated GFR (MDRD) 30 11/23/20 19:07 Glucose 87 mg/dL (80-115) 11/23/20 19:07 Calcium 9.9 mg/dL (7.8-10.44) 11/23/20 19:07 Total Bilirubin 0.4 mg/dL (0.2-1.2) 11/23/20 19:07 AST 21 U/L (5-34) 11/23/20 19:07 ALT 15 U/L (8-55) 11/23/20 19:07 Alkaline Phosphatase 81 U/L (40-110) 11/23/20 19:07 CK-MB (CK-2) 1.5 ng/mL (0-6.6) 11/23/20 19:07 Troponin I 0.035 ng/mL (< 0.028) H 11/23/20 19:07 B-Natriuretic Peptide 150.1 pg/mL (0-100) H 11/23/20 19:07 Serum Total Protein 8.0 g/dL (5.8-8.1) 11/23/20 19:07 Albumin 3.9 g/dL (3.4-4.8) 11/23/20 19:07 Globulin 4.1 g/dL (2.4-3.5) H 11/23/20 19:07 Albumin/Globulin Ratio 1.0 g/dL (1.2-2.2) L 11/23/20 19:07 Urine Color Yellow (Yellow) 11/23/20 19:39 Urine Clarity Clear (Clear) 11/23/20 19:39 Urine pH 5.5 (5.0-9.0) 11/23/20 19:39 Ur Specific [place] 1.019 (1.002-1.036) 11/23/20 19:39 Urine Protein Negative mg/dL (Neg-Trace) 11/23/20 19:39 Urine Glucose (UA) Normal mg/dL (Negative) 11/23/20 19:39 Urine Ketones Negative mg/dL (Negative) 11/23/20 19:39 Urine Blood Negative (Negative) 11/23/20 19:39 Urine Nitrite Negative (Negative) 11/23/20 19:39 Urine Bilirubin Negative (Negative) 11/23/20 19:39 Urine Urobilinogen Normal mg/dL (Less than 2) 11/23/20 19:39 Ur Leukocyte Esterase 250 Jigna/uL (Negative) A 11/23/20 19:39 Urine RBC 4-6 HPF (0-3) A 11/23/20 19:39 Urine WBC 11-20 HPF (0-3) A 11/23/20 19:39 Ur Squamous Epith Cells 0-3 HPF (0-3) 11/23/20 19:39 Urine Bacteria 1+ HPF (None Seen) A 11/23/20 19:39 Urine Yeast (Budding) 3+ HPF (None Seen) A 11/23/20 19:39 EKG Status: report reviewed by me Additional Comments: 12 lead EKG interpreted by Emergency Department Physician at time of study, 12 lead EKG shows normal sinus rhythm, Rate (beats per minute): 77, with no ectopics, Conduction normal, ST segments normal, Maddock normal, q Waves in inferior and anterior leads. These are not acute. Compared to EKG from 11/11/2019 CT scan - head Status: report reviewed by me Additional Comments: IMPRESSION: No acute abnormality. Chest x-ray Status: report reviewed by me Additional Comments: IMPRESSION: No acute cardiopulmonary findings. Other Status: report reviewed by me Additional Comments: Right shoulder x-ray IMPRESSION: No acute findings Hospitalist H&P A/P (1) UTI (urinary tract infection) Status: Acute (2) Yeast infection Code(s): B37.9 - CANDIDIASIS, UNSPECIFIED Status: Acute (3) BARB (acute kidney injury) Code(s): N17.9 - ACUTE KIDNEY FAILURE, UNSPECIFIED Status: Acute (4) Nausea & vomiting Code(s): R11.2 - NAUSEA WITH VOMITING, UNSPECIFIED Status: Acute (5) Right shoulder pain Code(s): M25.511 - PAIN IN RIGHT SHOULDER Status: Acute (6) CHF (congestive heart failure) Code(s): I50.9 - HEART FAILURE, UNSPECIFIED Status: Chronic (7) Hypothyroidism Code(s): E03.9 - HYPOTHYROIDISM, UNSPECIFIED Status: Chronic (8) Osteoarthritis Code(s): M19.90 - UNSPECIFIED OSTEOARTHRITIS, UNSPECIFIED SITE Status: Chronic (9) Neuropathy Code(s): G62.9 - POLYNEUROPATHY, UNSPECIFIED Status: Chronic (10) GERD (gastroesophageal reflux disease) Code(s): K21.9 - GASTRO-ESOPHAGEAL REFLUX DISEASE WITHOUT ESOPHAGITIS Status: Chronic Plan: Patient recently admitted to inpatient rehab status post pneumonia and diarrhea presents for nausea vomiting. Imaging unremarkable. UA consistent with UTI and yeast infection. #UTI Continue Rocephin. Urine culture pending. #Yeast infection UA budding yeast. Given Diflucan in ER. If still symptomatic, may repeat in 72 hours. #BARB Presented creatinine 1.72. Previous creatinine 1.18 (11/16) Given 1L NS in ER. Check renal ultrasound. Hold lisinopril and HCTZ. #Nausea and vomiting Recent fall and complaining of mild headache. CT brain negative. Likely related to problem #1 and 2. #Right shoulder pain Acute. X-ray negative for acute fracture dislocation. Symptoms are resolved when I assessed her. #CHF Takes lisinopril and HCTZ. We will hold his medications for now related to problem #3. #Hypothyroidism Restart home dose levothyroxine. Check TSH level. #Osteoarthritis Reports chronic OA/RA Unable to take NSAIDs secondary to her CKD 3 Takes Tylenol and tramadol as needed. We will restart meds when reconciled by nursing. #Neuropathy Restart home dose gabapentin Lyrica. #GERD Restart home dose Pepcid. SCDs for DVT prophylaxis. Pepcid for GI prophylaxis. CODE STATUS is full code. Discussed the case with attending physician, Dr. Cha, who agrees with plan of care
[2020-11-23] MEDS ORDERED: Ondansetron ODT 4 MG TAB PO PRN (21:34)
[2020-11-23] MEDS ORDERED: Calcium Carbonate 500 MG ChewTAB PO PRN (21:34)
[2020-11-23] MEDS ORDERED: traMADol HCl 50 MG TAB PO PRN (21:38)
[2020-11-23] MEDS: Acetaminophen 325 MG TAB PO PRN (23:50)
[2020-11-24 04:34] LABS: #Basophils 0.1 thou/uL (0.0-0.2); #Eosinphils 0.4 thou/uL (0.0-0.7); #Lymphocytes 2.5 thou/uL (1.20-3.40); #Monocytes 1.2 thou/uL (0.11-0.59); #Neutrophils 6.3 thou/uL (1.40-6.50); %Basophils 0.7 % (0.0-1.0); %Eosinophils 4.1 % (0.0-10.0); %Lymphocytes 23.9 % (21.0-51.0); %Monocytes 11.1 % (0.0-10.0); %Neutrophils 60.2 % (42.0-75.0); Hemoglobin 10.9 g/dL (12.0-16.0); Mean Corpuscular HGB CONC 31.3 g/dL (32.0-36.0); Mean Corpuscular Hemoglobin 27.9 pg (27.0-31.0); Mean Corpuscular Volume 89.2 fL (78.0-98.0); Mean Platelet Volume 7.8 fL (7.4-10.4); Platelet Count 525 thou/uL (130-400); RBC Distribution Width 15.1 % (11.5-14.5); Red Blood Cell (RBC) Count 3.92 mill/uL (4.20-5.40); White Blood Cell (WBC) Count 10.5 thou/uL (4.8-10.8)
[2020-11-24 05:01] LABS: Anion Gap 13 mmol/L (10-20); BUN (Urea Nitrogen) 47 mg/dL (9.8-20.1); Calc. Creatinine Clearance 66 mL/min (70-130); Calcium 9.2 mg/dL (7.8-10.44); Carbon Dioxide 23 mmol/L (23-31); Chloride 104 mmol/L (98-107); Glucose 83 mg/dL (80-115); Potassium 4.2 mmol/L (3.5-5.1); Sodium 136 mmol/L (136-145)
[2020-11-24] MEDS: Levothyroxine Sodium 100 MCG TAB PO SCH (05:15)
--- NOTE | 2020-11-24 07:15 | ULT ---
BILATERAL RENAL ULTRASOUND: Date: 11/23/2020 HISTORY: Acute kidney insufficiency. FINDINGS: Both kidneys measure approximately 8.5 cm length. Mild cortical thinning. No hydronephrosis or mass l esion. Cortical echogenicity is preserved. Urinary bladder is mildly distended and appears unremarkable. IMPRESSION: Unremarkable renal ultrasound. POS: AGW
[2020-11-24] MEDS ORDERED: Famotidine 20 MG TAB PO SCH (09:00)
[2020-11-24] MEDS: Gemfibrozil 600 MG TAB PO SCH ×2 (09:56→16:00)
[2020-11-24] MEDS: Trospium 20 MG TAB PO SCH ×2 (09:56→21:18)
[2020-11-24] MEDS: Pregabalin 75 MG CAP PO SCH ×3 (09:56→21:18)
[2020-11-24] MEDS: Aspirin 81 mg Enteric Coated Tablet PO SCH (09:57)
[2020-11-24] MEDS: Citalopram 20 MG TAB PO SCH (09:57)
[2020-11-24] MEDS: Calcitriol 0.25 MCG CAP PO SCH (09:57)
--- NOTE | 2020-11-24 15:56 | PDOC.FMACP ---
Advance Care Planning - Problem (1) BARB (acute kidney injury) Status: Acute Code(s): N17.9 - ACUTE KIDNEY FAILURE, UNSPECIFIED (2) Nausea & vomiting Status: Acute Code(s): R11.2 - NAUSEA WITH VOMITING, UNSPECIFIED (3) UTI (urinary tract infection) Status: Acute (4) CHF (congestive heart failure) Status: Chronic Code(s): I50.9 - HEART FAILURE, UNSPECIFIED (5) Palliative care encounter Status: Acute Code(s): Z51.5 - ENCOUNTER FOR PALLIATIVE CARE - Note Participants: patient, palliative care Summary: Palliative care addressed Advanced Care Planning. The diagnosis, prognosis and goals of care were discussed. Appropriate forms and documentation to accomplish the goals of care were discussed. All questions were answered. Confirmed DNI status MPOA completed Directive to Physician completed *Both origional and copy of MPOA and directives given to patient, copies also placed on chart for medical records. Please refer to Palliative care notes. Palliative care will sign off, if we can assist in the future with revisiting Goal of Care, complex decision making, symptom management please re consult. Time Spent (mins): 15
--- NOTE | 2020-11-24 16:48 | PDOC.HOSPP ---
- Subjective Encounter Date: 11/24/20 Encounter Time: 10:15 Subjective: Patient up in bed states that she feels nauseated - Objective Vital Signs & Weight: Vital Signs (12 hours) Temp Pulse Resp BP Pulse Ox 11/24/20 11:39 98 F 80 16 131/63 98 11/24/20 09:45 98.5 F 74 18 124/60 96 Weight Admit Weight 241 lb 8 oz Weight 241 lb 8 oz I&O: 11/23/20 11/24/20 11/25/20 06:59 06:59 06:59 Intake Total 360 Output Total 200 Balance 160 Result Diagrams: 11/24/20 04:15 11/24/20 04:15 Hospitalist ROS - Review of Systems Cardiovascular: denies: chest pain, palpitations, orthopnea, paroxysmal noc. dyspnea, edema, light headedness, other Gastrointestinal: reports: nausea. denies: vomiting, abdominal pain, diarrhea, constipation, melena, hematochezia, other Genitourinary: denies: dysuria, frequency, incontinence, hematuria, retention, other - Medication Medications: Active Medications Generic Name Dose Route Start Last Admin Trade Name Freq PRN Reason Stop Dose Admin Acetaminophen 650 mg 11/23/20 21:34 11/23/20 23:50 Acetaminophen 325 Mg Tab PO 650 mg Q4H PRN Administration Headache/Fever/Mild Pain (1-3) Aspirin 81 mg 11/24/20 09:00 11/24/20 09:57 Aspirin 81 Mg Enteric Coated Tablet PO 81 mg DAILY BRYAN Administration Calcitriol 0.25 mcg 11/24/20 09:00 11/24/20 09:57 Calcitriol 0.25 Mcg Cap PO 0.25 mcg DAILY BRYAN Administration Citalopram Hydrobromide 40 mg 11/24/20 09:00 11/24/20 09:57 Citalopram 20 Mg Tab PO 40 mg DAILY BRYAN Administration Famotidine 20 mg 11/24/20 09:00 11/24/20 09:57 Famotidine 20 Mg Tab PO 20 mg BID BRYAN Administration Gemfibrozil 600 mg 11/24/20 07:30 11/24/20 16:00 Gemfibrozil 600 Mg Tab PO Not Given BID-AC BRYAN Levothyroxine Sodium 100 mcg 11/24/20 06:00 11/24/20 05:15 Levothyroxine Sodium 100 Mcg Tab PO 100 mcg 0600 BRYAN Administration Ondansetron HCl 4 mg 11/23/20 21:34 11/24/20 11:22 Ondansetron Odt 4 Mg Tab PO 4 mg Q6H PRN Administration Nausea/Vomiting Pregabalin 75 mg 11/24/20 09:00 11/24/20 15:41 Pregabalin 75 Mg Cap PO 75 mg TID BRYAN Administration Trospium 20 mg 11/24/20 09:00 11/24/20 09:56 Trospium 20 Mg Tab PO 20 mg BID BRYAN Administration Hospitalist Exam Vitals: Vital Signs (12 hours) Temp Pulse Resp BP Pulse Ox 11/24/20 11:39 98 F 80 16 131/63 98 11/24/20 09:45 98.5 F 74 18 124/60 96 Weight Admit Weight 241 lb 8 oz Weight 241 lb 8 oz Neck: supple Heart: RRR, no murmur Respiratory: no wheezes, no rales, no ronchi Gastrointestinal: soft, non-tender, normal bowel sounds Extremities: 2+ LE edema Hosp A/P (1) Nausea Code(s): R11.0 - NAUSEA Status: Acute (2) UTI (urinary tract infection) Status: Acute (3) Hypothyroidism Code(s): E03.9 - HYPOTHYROIDISM, UNSPECIFIED Status: Chronic (4) CKD (chronic kidney disease) stage 3, GFR 30-59 ml/min Code(s): N18.30 - CHRONIC KIDNEY DISEASE, STAGE 3 UNSPECIFIED Status: Acute - Plan Patient status post cholecystectomy. LFTs normal. Unclear etiology of her nausea. Her urine culture has no growth. We will stop antibiotics. Will start patient on a PPI. We will start patient on some MiraLAX since patient last bowel movement was about 2 or 3 days ago.
[2020-11-24] MEDS ORDERED: Polyethylene Glycol 3350 17 GM Packet PO SCH (17:15)
[2020-11-24] MEDS ORDERED: cefTRIAXone\\ROCEPHIN 1 GM in Sodium Chloride 0.9% 100 ML IVPB SCH (21:00)
[2020-11-24] MEDS: Rosuvastatin 20 MG TAB PO SCH (21:19)
[2020-11-24] MEDS: Gabapentin 300 MG CAP PO SCH (21:19)
[2020-11-25] MEDS: Levothyroxine Sodium 100 MCG TAB PO SCH (05:51)
[2020-11-25] MEDS: Furosemide 40 MG TAB PO SCH (08:15)
[2020-11-25] MEDS: Acetaminophen 325 MG TAB PO PRN (08:15)
[2020-11-25] MEDS: Gemfibrozil 600 MG TAB PO SCH ×2 (08:15→16:08)
[2020-11-25] MEDS: Calcitriol 0.25 MCG CAP PO SCH (08:16)
[2020-11-25] MEDS: Citalopram 20 MG TAB PO SCH (08:16)
[2020-11-25] MEDS: Aspirin 81 mg Enteric Coated Tablet PO SCH (08:16)
[2020-11-25] MEDS: Pregabalin 75 MG CAP PO SCH ×3 (08:16→21:09)
[2020-11-25] MEDS: Trospium 20 MG TAB PO SCH ×2 (08:16→21:09)
[2020-11-25] MEDS: Polyethylene Glycol 3350 17 GM Packet PO SCH (08:17)
[2020-11-25 09:46] LABS: #Basophils 0.1 thou/uL (0.0-0.2); #Eosinphils 0.3 thou/uL (0.0-0.7); #Lymphocytes 2.5 thou/uL (1.20-3.40); #Neutrophils 5.7 thou/uL (1.40-6.50); %Basophils 0.9 % (0.0-1.0); %Eosinophils 3.1 % (0.0-10.0); %Lymphocytes 26.2 % (21.0-51.0); %Monocytes 10.2 % (0.0-10.0); %Neutrophils 59.7 % (42.0-75.0); Hemoglobin 11.8 g/dL (12.0-16.0); Mean Corpuscular HGB CONC 31.3 g/dL (32.0-36.0); Mean Corpuscular Hemoglobin 28.2 pg (27.0-31.0); Mean Corpuscular Volume 90.2 fL (78.0-98.0); Mean Platelet Volume 7.8 fL (7.4-10.4); Platelet Count 443 thou/uL (130-400); RBC Distribution Width 14.9 % (11.5-14.5); Red Blood Cell (RBC) Count 4.19 mill/uL (4.20-5.40); White Blood Cell (WBC) Count 9.6 thou/uL (4.8-10.8)
[2020-11-25 09:53] LABS: Anion Gap 16 mmol/L (10-20); BUN (Urea Nitrogen) 38 mg/dL (9.8-20.1); Calc. Creatinine Clearance 88 mL/min (70-130); Calcium 9.5 mg/dL (7.8-10.44); Carbon Dioxide 21 mmol/L (23-31); Chloride 104 mmol/L (98-107); Glucose 91 mg/dL (80-115); Potassium 5.1 mmol/L (3.5-5.1); Sodium 136 mmol/L (136-145)
--- NOTE | 2020-11-25 14:32 | PDOC.DS.DS ---
Provider Date of Admission: 11/23/20 21:47 Date of Discharge: 11/25/20 Admitting Provider: Piotr Cha MD Primary Care Physician: Mary Stewart MD Course Hospital Course: Patient is 65-year-old female who initially presented to the hospital with nausea. Patient at this time was treated for possible UTI. Her urine culture was negative for any bacteria however indicated yeast. She was treated with a few doses of Diflucan. Patient's nausea improved. She also had not had a bowel movement for some time and felt better after having multiple bowel movements. she was then ready for discharge however she did not want to go back to her [facility] and wanted another nursing care facility. At this time case management was consulted and arrangements were made. Patient at this time was then discharged to a new nursing care facility Resuscitation Status: 11/23/20 21:34 Resuscitation Status Routine Co-Sign Provider: Resuscitation Status: FULL: Full Resuscitation Discussed with: patient Lab Results: 11/25/20 09:28 11/25/20 09:28 Abnormal Lab Results - Last 48 hrs 11/23/20 19:07: B-Natriuretic Peptide 150.1 H 11/23/20 19:07: Troponin I 0.035 H 11/23/20 19:07: WBC 12.2 H, MCHC 31.5 L, RDW 15.3 H, Plt Count 537 H, Neutrophils # 7.7 H, Monocytes # 1.2 H 11/23/20 19:07: Carbon Dioxide 20 L, BUN 50 H, Creatinine 1.72 H, Globulin 4.1 H, Albumin/Globulin Ratio 1.0 L 11/23/20 19:39: Ur Leukocyte Esterase 250 A, Urine RBC 4-6 A, Urine WBC 11-20 A, Urine Bacteria 1+ A, Urine Yeast (Budding) 3+ A 11/24/20 04:15: BUN 47 H, Creatinine 1.43 H 11/24/20 04:15: RBC 3.92 L, Hgb 10.9 L, Hct 34.9 L, MCHC 31.3 L, RDW 15.1 H, Plt Count 525 H, Monocytes % 11.1 H, Monocytes # 1.2 H 11/25/20 09:28: Carbon Dioxide 21 L, BUN 38 H, Creatinine 1.11 H 11/25/20 09:28: RBC 4.19 L, Hgb 11.8 L, MCHC 31.3 L, RDW 14.9 H, Plt Count 443 H, Monocytes % 10.2 H, Monocytes # 1.0 H Microbiology - Entire Visit 11/23/20 19:39 Urine Straight Catheter Urine Culture - Final Marija albicans Vitals: Vital Signs (12 hours) Temp Pulse Resp BP Pulse Ox 11/25/20 12:25 98.4 F 72 18 124/58 L 98 11/25/20 08:07 98.5 F 70 15 134/63 98 11/25/20 04:44 97.6 F 72 20 116/61 97 Weight Admit Weight 241 lb 8 oz Weight 250 lb 1 oz Physical Exam: The patient was seen and examined on the day of discharge. Problem (1) Nausea Code(s): R11.0 - NAUSEA Status: Acute (2) UTI (urinary tract infection) Status: Acute (3) Hypothyroidism Code(s): E03.9 - HYPOTHYROIDISM, UNSPECIFIED Status: Chronic (4) CKD (chronic kidney disease) stage 3, GFR 30-59 ml/min Code(s): N18.30 - CHRONIC KIDNEY DISEASE, STAGE 3 UNSPECIFIED Status: Acute Plan Home Medications: Medication Instructions Recorded Confirmed Type Calcitriol [Rocaltrol] 0.25 mcg PO DAILY 11/11/20 11/24/20 History Citalopram Hydrobromide 40 mg PO DAILY 11/11/20 11/24/20 History [Citalopram HBr] Famotidine 20 mg PO BID 11/11/20 11/24/20 History Furosemide 20 mg PO DAILY 11/11/20 11/24/20 History Gemfibrozil [Lopid] 600 mg PO BIDAC 11/11/20 11/24/20 History Levothyroxine Sodium 100 mcg PO DAILY 11/11/20 11/24/20 History [Levothyroxine] Lisinopril 10 mg PO DAILY 11/11/20 11/24/20 History Methocarbamol 500 mg PO HS PRN 11/11/20 11/24/20 History Pregabalin [Lyrica] 75 mg PO TID 11/11/20 11/24/20 History Tolterodine Tartrate [Detrol LA] 4 mg PO DAILY 11/11/20 11/24/20 History traMADol HCl [Tramadol HCl] 50 mg PO TID PRN 11/11/20 11/24/20 History Aspirin [Ecotrin Low Strength] 81 mg PO DAILY 30 Days #30 tab 11/16/20 11/24/20 Rx Acetaminophen ER (8hr) [TYLENOL ER 650 mg PO Q4H 11/24/20 11/24/20 History (8hr ARTHRITIS PAIN)] Ascorbic Acid [Vitamin C] 500 mg PO BID 11/24/20 11/24/20 History Atorvastatin Calcium [Lipitor] 20 mg PO HS 11/24/20 11/24/20 History Lidocaine 4% [Xylocaine 4% Topical 25 ml TOP MWF 11/24/20 11/24/20 History Solution] Montelukast Sodium [Singulair] 10 mg PO DAILY 11/24/20 11/24/20 History Ondansetron [Zofran ODT] 4 mg PO Q6HR PRN 11/24/20 11/24/20 History Allergies: loratadine [From Claritin] Allergy (Unknown, Verified 11/23/20 23:36) Depression per pt Penicillins Allergy (Unknown, Verified 11/23/20 23:36) Rash Activity:: Activity as Tolerated Nourishment:: Heart Healthy Diet Referrals: Mary Stewart MD [Primary Care Provider] - Disposition: [facility]ILITY Quality CORE MEASURES:: N/A
[2020-11-25] MEDS: Rosuvastatin 20 MG TAB PO SCH (21:09)
[2020-11-25] MEDS: Gabapentin 300 MG CAP PO SCH (21:10)
[2020-11-26] MEDS: Levothyroxine Sodium 100 MCG TAB PO SCH (06:02)
[2020-11-26] MEDS: Trospium 20 MG TAB PO SCH ×2 (08:02→20:39)
[2020-11-26] MEDS: Calcitriol 0.25 MCG CAP PO SCH (08:02)
[2020-11-26] MEDS: Pregabalin 75 MG CAP PO SCH ×3 (08:02→20:38)
[2020-11-26] MEDS: Citalopram 20 MG TAB PO SCH (08:02)
[2020-11-26] MEDS: Aspirin 81 mg Enteric Coated Tablet PO SCH (08:02)
[2020-11-26] MEDS: Polyethylene Glycol 3350 17 GM Packet PO SCH (08:03)
[2020-11-26] MEDS: Gemfibrozil 600 MG TAB PO SCH ×2 (08:03→15:36)
[2020-11-26] MEDS: Furosemide 40 MG TAB PO SCH (08:03)
--- NOTE | 2020-11-26 14:41 | PDOC.HOSPP ---
- Subjective Encounter Date: 11/26/20 Encounter Time: 12:15 Subjective: Up in bed no complaints. - Objective Vital Signs & Weight: Vital Signs (12 hours) Temp Pulse Pulse Pulse Resp BP BP 11/26/20 11:51 98.2 F 78 14 11/26/20 10:20 75 83 117/57 L 140/69 11/26/20 10:09 75 83 117/57 L 140/69 11/26/20 07:57 98.3 F 68 14 11/26/20 04:00 98.1 F 70 18 BP Pulse Ox 11/26/20 11:51 121/58 L 97 11/26/20 10:20 11/26/20 10:09 11/26/20 07:57 122/62 95 11/26/20 04:00 136/65 95 Weight Admit Weight 241 lb 8 oz Weight 250 lb 1 oz I&O: 11/25/20 11/26/20 11/27/20 06:59 06:59 06:59 Intake Total 1180 1720 Output Total 850 2200 Balance 330 -480 Result Diagrams: 11/25/20 09:28 11/25/20 09:28 Hospitalist ROS - Review of Systems Cardiovascular: denies: chest pain, palpitations, orthopnea, paroxysmal noc. dyspnea, edema, light headedness, other Gastrointestinal: denies: nausea, vomiting, abdominal pain, diarrhea, constipation, melena, hematochezia, other Genitourinary: denies: dysuria, frequency, incontinence, hematuria, retention, other - Medication Medications: Active Medications Generic Name Dose Route Start Last Admin Trade Name Patricq PRN Reason Stop Dose Admin Acetaminophen 650 mg 11/23/20 21:34 11/25/20 08:15 Acetaminophen 325 Mg Tab PO 650 mg Q4H PRN Administration Headache/Fever/Mild Pain (1-3) Aspirin 81 mg 11/24/20 09:00 11/26/20 08:02 Aspirin 81 Mg Enteric Coated Tablet PO 81 mg DAILY BRYAN Administration Calcitriol 0.25 mcg 11/24/20 09:00 11/26/20 08:02 Calcitriol 0.25 Mcg Cap PO 0.25 mcg DAILY BRYAN Administration Citalopram Hydrobromide 40 mg 11/24/20 09:00 11/26/20 08:02 Citalopram 20 Mg Tab PO 40 mg DAILY BRYAN Administration Furosemide 40 mg 11/25/20 07:30 11/26/20 08:03 Furosemide 40 Mg Tab PO 40 mg DAILY-AC BRYAN Administration Gabapentin 300 mg 11/24/20 21:00 11/25/20 21:10 Gabapentin 300 Mg Cap PO Not Given HS BRYAN Gemfibrozil 600 mg 11/24/20 07:30 11/26/20 08:03 Gemfibrozil 600 Mg Tab PO 600 mg BID-AC BRYAN Administration Levothyroxine Sodium 100 mcg 11/24/20 06:00 11/26/20 06:02 Levothyroxine Sodium 100 Mcg Tab PO 100 mcg 0600 BRYAN Administration Ondansetron HCl 4 mg 11/23/20 21:34 11/24/20 11:22 Ondansetron Odt 4 Mg Tab PO 4 mg Q6H PRN Administration Nausea/Vomiting Pantoprazole Sodium 40 mg 11/24/20 21:00 11/26/20 08:03 Pantoprazole 40 Mg Tab PO 40 mg BID BRYAN Administration Polyethylene Glycol 17 gm 11/25/20 09:00 11/26/20 08:03 Polyethylene Glycol 3350 17 Gm Packet PO 17 gm DAILY BRYAN Administration Pregabalin 75 mg 11/24/20 09:00 11/26/20 08:02 Pregabalin 75 Mg Cap PO 75 mg TID BRYAN Administration Rosuvastatin Calcium 20 mg 11/24/20 21:00 11/25/20 21:09 Rosuvastatin 20 Mg Tab PO 20 mg HS BRYAN Administration Trospium 20 mg 11/24/20 09:00 11/26/20 08:02 Trospium 20 Mg Tab PO 20 mg BID BRYAN Administration Hospitalist Exam Vitals: Vital Signs (12 hours) Temp Pulse Pulse Pulse Resp BP BP 11/26/20 11:51 98.2 F 78 14 11/26/20 10:20 75 83 117/57 L 140/69 11/26/20 10:09 75 83 117/57 L 140/69 11/26/20 07:57 98.3 F 68 14 11/26/20 04:00 98.1 F 70 18 BP Pulse Ox 11/26/20 11:51 121/58 L 97 11/26/20 10:20 11/26/20 10:09 11/26/20 07:57 122/62 95 11/26/20 04:00 136/65 95 Weight Admit Weight 241 lb 8 oz Weight 250 lb 1 oz Neck: supple Heart: no murmur, no rubs Respiratory: no wheezes Gastrointestinal: soft, non-tender Extremities: 1+ LE edema Hosp A/P (1) Nausea Code(s): R11.0 - NAUSEA Status: Acute (2) UTI (urinary tract infection) Status: Acute (3) Hypothyroidism Code(s): E03.9 - HYPOTHYROIDISM, UNSPECIFIED Status: Chronic (4) CKD (chronic kidney disease) stage 3, GFR 30-59 ml/min Code(s): N18.30 - CHRONIC KIDNEY DISEASE, STAGE 3 UNSPECIFIED Status: Acute - Plan Patient status post cholecystectomy. LFTs normal. Unclear etiology of her nausea. Her urine culture has no growth. We will stop antibiotics. Will start patient on a PPI. We will start patient on some MiraLAX since patient last bowel movement was about 2 or 3 days ago. 11/25 patient up in bed no complaints. She is tolerating her food without any problems. Culture no growth. Patient does not want to go back to [facility] she wants to go back to another nursing facility. 11/26 patient up in bed no complaints. We will add medications for constipation. Waiting for insurance approval to transfer patient back to another facility.
--- NOTE | 2020-11-26 14:49 | PDOC.HOSPP ---
- Subjective Encounter Date: 11/25/20 Encounter Time: 10:30 Subjective: Patient up in bed no complaints. - Objective Vital Signs & Weight: Vital Signs (12 hours) Temp Pulse Pulse Pulse Resp BP BP 11/26/20 11:51 98.2 F 78 14 11/26/20 10:20 75 83 117/57 L 140/69 11/26/20 10:09 75 83 117/57 L 140/69 11/26/20 07:57 98.3 F 68 14 11/26/20 04:00 98.1 F 70 18 BP Pulse Ox 11/26/20 11:51 121/58 L 97 11/26/20 10:20 11/26/20 10:09 11/26/20 07:57 122/62 95 11/26/20 04:00 136/65 95 Weight Admit Weight 241 lb 8 oz Weight 250 lb 1 oz I&O: 11/25/20 11/26/20 11/27/20 06:59 06:59 06:59 Intake Total 1180 1720 Output Total 850 2200 Balance 330 -480 Result Diagrams: 11/25/20 09:28 11/25/20 09:28 Hospitalist ROS - Review of Systems Cardiovascular: denies: chest pain, palpitations, orthopnea, paroxysmal noc. dyspnea, edema, light headedness, other Gastrointestinal: denies: nausea, vomiting, abdominal pain, diarrhea, constipation, melena, hematochezia, other Genitourinary: denies: dysuria, frequency, incontinence, hematuria, retention, other - Medication Medications: Active Medications Generic Name Dose Route Start Last Admin Trade Name Patricq PRN Reason Stop Dose Admin Acetaminophen 650 mg 11/23/20 21:34 11/25/20 08:15 Acetaminophen 325 Mg Tab PO 650 mg Q4H PRN Administration Headache/Fever/Mild Pain (1-3) Aspirin 81 mg 11/24/20 09:00 11/26/20 08:02 Aspirin 81 Mg Enteric Coated Tablet PO 81 mg DAILY BRYAN Administration Calcitriol 0.25 mcg 11/24/20 09:00 11/26/20 08:02 Calcitriol 0.25 Mcg Cap PO 0.25 mcg DAILY BRYAN Administration Citalopram Hydrobromide 40 mg 11/24/20 09:00 11/26/20 08:02 Citalopram 20 Mg Tab PO 40 mg DAILY BRYAN Administration Furosemide 40 mg 11/25/20 07:30 11/26/20 08:03 Furosemide 40 Mg Tab PO 40 mg DAILY-AC BRYAN Administration Gabapentin 300 mg 11/24/20 21:00 11/25/20 21:10 Gabapentin 300 Mg Cap PO Not Given HS BRYAN Gemfibrozil 600 mg 11/24/20 07:30 11/26/20 08:03 Gemfibrozil 600 Mg Tab PO 600 mg BID-AC BRYAN Administration Levothyroxine Sodium 100 mcg 11/24/20 06:00 11/26/20 06:02 Levothyroxine Sodium 100 Mcg Tab PO 100 mcg 0600 BRYAN Administration Ondansetron HCl 4 mg 11/23/20 21:34 11/24/20 11:22 Ondansetron Odt 4 Mg Tab PO 4 mg Q6H PRN Administration Nausea/Vomiting Pantoprazole Sodium 40 mg 11/24/20 21:00 11/26/20 08:03 Pantoprazole 40 Mg Tab PO 40 mg BID BRYAN Administration Polyethylene Glycol 17 gm 11/25/20 09:00 11/26/20 08:03 Polyethylene Glycol 3350 17 Gm Packet PO 17 gm DAILY BRYAN Administration Pregabalin 75 mg 11/24/20 09:00 11/26/20 08:02 Pregabalin 75 Mg Cap PO 75 mg TID BRYAN Administration Rosuvastatin Calcium 20 mg 11/24/20 21:00 11/25/20 21:09 Rosuvastatin 20 Mg Tab PO 20 mg HS BRYAN Administration Trospium 20 mg 11/24/20 09:00 11/26/20 08:02 Trospium 20 Mg Tab PO 20 mg BID BRAYN Administration Hospitalist Exam Vitals: Vital Signs (12 hours) Temp Pulse Pulse Pulse Resp BP BP 11/26/20 11:51 98.2 F 78 14 11/26/20 10:20 75 83 117/57 L 140/69 11/26/20 10:09 75 83 117/57 L 140/69 11/26/20 07:57 98.3 F 68 14 11/26/20 04:00 98.1 F 70 18 BP Pulse Ox 11/26/20 11:51 121/58 L 97 11/26/20 10:20 11/26/20 10:09 11/26/20 07:57 122/62 95 11/26/20 04:00 136/65 95 Weight Admit Weight 241 lb 8 oz Weight 250 lb 1 oz Neck: supple Heart: RRR Respiratory: no wheezes, no rales Gastrointestinal: soft, non-tender, normal bowel sounds Extremities: 1+ LE edema Hosp A/P (1) Nausea Code(s): R11.0 - NAUSEA Status: Acute (2) UTI (urinary tract infection) Status: Acute (3) Hypothyroidism Code(s): E03.9 - HYPOTHYROIDISM, UNSPECIFIED Status: Chronic (4) CKD (chronic kidney disease) stage 3, GFR 30-59 ml/min Code(s): N18.30 - CHRONIC KIDNEY DISEASE, STAGE 3 UNSPECIFIED Status: Acute - Plan Patient status post cholecystectomy. LFTs normal. Unclear etiology of her nausea. Her urine culture has no growth. We will stop antibiotics. Will start patient on a PPI. We will start patient on some MiraLAX since patient last bowel movement was about 2 or 3 days ago. 11/25 patient up in bed no complaints. She is tolerating her food without any problems. Culture no growth. Patient does not want to go back to [facility] she wants to go back to another nursing facility.
[2020-11-26] MEDS: Gabapentin 300 MG CAP PO SCH (20:38)
[2020-11-26] MEDS: Rosuvastatin 20 MG TAB PO SCH (20:39)
[2020-11-27] MEDS: Levothyroxine Sodium 100 MCG TAB PO SCH (05:35)
[2020-11-27] MEDS: Furosemide 40 MG TAB PO SCH (09:14)
[2020-11-27] MEDS: Citalopram 20 MG TAB PO SCH (09:15)
[2020-11-27] MEDS: Aspirin 81 mg Enteric Coated Tablet PO SCH (09:15)
[2020-11-27] MEDS: Gemfibrozil 600 MG TAB PO SCH ×2 (09:15→16:05)
[2020-11-27] MEDS: Fluconazole 100 MG TAB PO SCH (09:15)
[2020-11-27] MEDS: Acetaminophen 325 MG TAB PO PRN (09:16)
[2020-11-27] MEDS: Calcitriol 0.25 MCG CAP PO SCH (09:16)
[2020-11-27] MEDS: Trospium 20 MG TAB PO SCH ×2 (09:16→20:55)
[2020-11-27] MEDS: Pregabalin 75 MG CAP PO SCH ×3 (09:17→20:56)
[2020-11-27] MEDS: Polyethylene Glycol 3350 17 GM Packet PO SCH (09:18)
--- NOTE | 2020-11-27 11:44 | PDOC.HOSPP ---
- Subjective Encounter Date: 11/27/20 Encounter Time: 11:30 Subjective: pt up in bed no complains. - Objective Vital Signs & Weight: Vital Signs (12 hours) Temp Pulse Resp BP Pulse Ox 11/27/20 08:45 96.1 F L 82 18 113/56 L 97 11/27/20 03:30 98.2 F 76 18 132/62 96 Weight Admit Weight 241 lb 8 oz Weight 250 lb 1 oz I&O: 11/26/20 11/27/20 11/28/20 06:59 06:59 06:59 Intake Total 1720 1500 360 Output Total 2200 1500 Balance -480 0 360 Result Diagrams: 11/25/20 09:28 11/25/20 09:28 Hospitalist ROS - Review of Systems Respiratory: denies: cough, dry, shortness of breath, hemoptysis, SOB with excertion, pleuritic pain, sputum, wheezing, other Cardiovascular: denies: chest pain, palpitations, orthopnea, paroxysmal noc. dyspnea, edema, light headedness, other Gastrointestinal: denies: nausea, vomiting, abdominal pain, diarrhea, constipation, melena, hematochezia, other - Medication Medications: Active Medications Generic Name Dose Route Start Last Admin Trade Name Freq PRN Reason Stop Dose Admin Acetaminophen 650 mg 11/23/20 21:34 11/27/20 09:16 Acetaminophen 325 Mg Tab PO 650 mg Q4H PRN Administration Headache/Fever/Mild Pain (1-3) Aspirin 81 mg 11/24/20 09:00 11/27/20 09:15 Aspirin 81 Mg Enteric Coated Tablet PO 81 mg DAILY BRYAN Administration Calcitriol 0.25 mcg 11/24/20 09:00 11/27/20 09:16 Calcitriol 0.25 Mcg Cap PO 0.25 mcg DAILY BRYAN Administration Citalopram Hydrobromide 40 mg 11/24/20 09:00 11/27/20 09:15 Citalopram 20 Mg Tab PO 40 mg DAILY BRYAN Administration Fluconazole 150 mg 11/27/20 09:00 11/27/20 09:15 Fluconazole 100 Mg Tab PO 11/29/20 09:01 150 mg DAILY BRYAN Administration Furosemide 40 mg 11/25/20 07:30 11/27/20 09:14 Furosemide 40 Mg Tab PO 40 mg DAILY-AC BRYAN Administration Gabapentin 300 mg 11/24/20 21:00 11/26/20 20:38 Gabapentin 300 Mg Cap PO Not Given HS BRYAN Gemfibrozil 600 mg 11/24/20 07:30 11/27/20 09:15 Gemfibrozil 600 Mg Tab PO 600 mg BID-AC BRYAN Administration Levothyroxine Sodium 100 mcg 11/24/20 06:00 11/27/20 05:35 Levothyroxine Sodium 100 Mcg Tab PO 100 mcg 0600 BRYAN Administration Ondansetron HCl 4 mg 11/23/20 21:34 11/24/20 11:22 Ondansetron Odt 4 Mg Tab PO 4 mg Q6H PRN Administration Nausea/Vomiting Pantoprazole Sodium 40 mg 11/24/20 21:00 11/27/20 09:17 Pantoprazole 40 Mg Tab PO 40 mg BID BRYAN Administration Polyethylene Glycol 17 gm 11/25/20 09:00 11/27/20 09:18 Polyethylene Glycol 3350 17 Gm Packet PO Not Given DAILY BRYAN Pregabalin 75 mg 11/24/20 09:00 11/27/20 09:17 Pregabalin 75 Mg Cap PO 75 mg TID BRYAN Administration Rosuvastatin Calcium 20 mg 11/24/20 21:00 11/26/20 20:39 Rosuvastatin 20 Mg Tab PO 20 mg HS BRYAN Administration Sodium Chloride 10 ml 11/23/20 21:34 11/27/20 09:18 Flush - Normal Saline 10 Ml Syringe IVF 10 ml PRN PRN Administration Saline Flush Trospium 20 mg 11/24/20 09:00 11/27/20 09:16 Trospium 20 Mg Tab PO 20 mg BID BRYAN Administration Hospitalist Exam Vitals: Vital Signs (12 hours) Temp Pulse Resp BP Pulse Ox 11/27/20 08:45 96.1 F L 82 18 113/56 L 97 11/27/20 03:30 98.2 F 76 18 132/62 96 Weight Admit Weight 241 lb 8 oz Weight 250 lb 1 oz Eye: PERRL Neck: supple Heart: no murmur, no rubs Respiratory: no wheezes, no ronchi Gastrointestinal: soft, normal bowel sounds Extremities: 1+ LE edema Hosp A/P (1) Nausea Code(s): R11.0 - NAUSEA Status: Acute (2) UTI (urinary tract infection) Status: Acute (3) Hypothyroidism Code(s): E03.9 - HYPOTHYROIDISM, UNSPECIFIED Status: Chronic (4) CKD (chronic kidney disease) stage 3, GFR 30-59 ml/min Code(s): N18.30 - CHRONIC KIDNEY DISEASE, STAGE 3 UNSPECIFIED Status: Acute - Plan Patient status post cholecystectomy. LFTs normal. Unclear etiology of her nausea. Her urine culture has no growth. We will stop antibiotics. Will start patient on a PPI. We will start patient on some MiraLAX since patient last bowel movement was about 2 or 3 days ago. 11/25 patient up in bed no complaints. She is tolerating her food without any problems. Culture no growth. Patient does not want to go back to [facility] she wants to go back to another nursing facility. 11/26 patient up in bed no complaints. We will add medications for constipation. Waiting for insurance approval to transfer patient back to another facility. 11/27 patient up in bed no complains. pending insurance approval to transfer pt to [facility].
[2020-11-27] MEDS: Rosuvastatin 20 MG TAB PO SCH (20:55)
[2020-11-27] MEDS: Gabapentin 300 MG CAP PO SCH (20:59)
[2020-11-28] MEDS: Levothyroxine Sodium 100 MCG TAB PO SCH (06:22)
[2020-11-28] MEDS: Citalopram 20 MG TAB PO SCH (08:36)
[2020-11-28] MEDS: Fluconazole 100 MG TAB PO SCH (08:36)
[2020-11-28] MEDS: Furosemide 40 MG TAB PO SCH (08:37)
[2020-11-28] MEDS: Gemfibrozil 600 MG TAB PO SCH ×2 (08:37→18:32)
[2020-11-28] MEDS: Aspirin 81 mg Enteric Coated Tablet PO SCH (08:37)
[2020-11-28] MEDS: Polyethylene Glycol 3350 17 GM Packet PO SCH (08:37)
[2020-11-28] MEDS: Pregabalin 75 MG CAP PO SCH ×3 (08:38→20:30)
[2020-11-28] MEDS: Trospium 20 MG TAB PO SCH ×2 (08:38→20:30)
[2020-11-28] MEDS: Calcitriol 0.25 MCG CAP PO SCH (08:39)
[2020-11-28] MEDS: Acetaminophen 325 MG TAB PO PRN ×2 (08:43→16:07)
[2020-11-28 19:39] VITALS: TEMP 97.9
[2020-11-28] MEDS: Gabapentin 300 MG CAP PO SCH (20:29)
[2020-11-28] MEDS: Rosuvastatin 20 MG TAB PO SCH (20:30)
[2020-11-29] MEDS: Levothyroxine Sodium 100 MCG TAB PO SCH (05:44)
[2020-11-29 07:27] VITALS: BP 117/56
[2020-11-29] MEDS: Polyethylene Glycol 3350 17 GM Packet PO SCH (09:06)
[2020-11-29] MEDS: Citalopram 20 MG TAB PO SCH (09:07)
[2020-11-29] MEDS: Aspirin 81 mg Enteric Coated Tablet PO SCH (09:07)
[2020-11-29] MEDS: Fluconazole 100 MG TAB PO SCH (09:07)
[2020-11-29] MEDS: Furosemide 40 MG TAB PO SCH (09:08)
[2020-11-29] MEDS: Gemfibrozil 600 MG TAB PO SCH (09:08)
[2020-11-29] MEDS: Trospium 20 MG TAB PO SCH (09:08)
[2020-11-29] MEDS: Calcitriol 0.25 MCG CAP PO SCH (09:08)
[2020-11-29] MEDS: Pregabalin 75 MG CAP PO SCH (09:08)
[2020-11-29 12:33] VITALS: BMI 45.7
--- NOTE | 2020-11-30 14:00 | PQF ---
CLINICAL DOCUMENTATION CLARIFICATION FORM: Dear Dr. Sarah Muse Date: 11.30.20 Please exercise your independent, professional judgment in responding to the clarification form. Clinical indicators are provided on the bottom of this form for your review. Please check appropriate box(es) to clarify if the following diagnosis has been ruled in our ruled out: [ ] Ruled in UTI [x ] Ruled out UTI [ ] Other diagnosis [ ] Unable to determine For continuity of documentation, please document condition throughout progress notes and discharge summary. Thank You. To be completed by CDI/Coding staff for physician review: CLINICAL INDICATORS - SIGNS / SYMPTOMS / LABS / RESULTS AND LOCATION IN MR ED: UTI; BARB; VAGINAL CANDIDIASIS LABS: UA: Leukocyte Esterase 250 Urine RBC 4-6 Urine WBC 11-20 Urine Bacteria 1+ Urine Yeast (budding) 3+ .27 H&P ([facility]): * Urinary discomfort and vaginal irritation for approximately 3-4 days * nauseated and vomited one time several days ago * decreased appetite and mild abdominal discomfort in epigastric region * she felt that her symptoms were consistent with UTI 11.24 PN ([facility]): * UTI acute * Urine culture has no growth we will stop antibiotics RISK FACTORS / RESULTS AND LOCATION IN MR 1.27 H&P ([facility]): * from [facility] - been in rehab for approximately 1 week * PMH: CKD stage 3 *UTI; Yeast infection; BARB; TREATMENTS / RESULTS AND LOCATION IN MR 1.27 H&P ([facility]): * continue Rocephin (DEC 26); urine culture pending * Diflucan in ER if still symptomatic, may repeat in 72 hrs. CDS Signature: Mindi Castaneda RN, CCDS Phone #: [phone] [email or web address] This is a permanent part of the Medical Record [facility]
--- NOTE | 2020-11-30 14:31 | PQF ---
CLINICAL DOCUMENTATION CLARIFICATION FORM: Dear Dr. Sarah Muse Date: 11.30.20 Please exercise your independent, professional judgment in responding to the clarification form. Clinical indicators are provided on the bottom of this form for your review Please check appropriate box(es): BMI > 40 with associated diagnosis of: (check one) [x ] Morbid (Severe) Obesity [ ] Overweight [ ] Obesity [ ] BMI not associated with obesity [ ] Other diagnosis [ ] Unable to determine For continuity of documentation, please document condition throughout progress notes and discharge summary. Thank You. To be completed by CDI/Coding staff for physician review: CLINICAL INDICATORS - SIGNS / SYMPTOMS / LABS / RESULTS AND LOCATION IN EMR BMI of: 45.7 1.27 H&P ([facility]): recent fall 1.28 PM ([facility]): extremities 2+ LE edema; on Miralax since last bowel movement was about 2-3 days ago 2.2 Food & Nutrition Therapy Assessment: *assisted to Bedside commode *BMI 45.7 * WCT treating non-pressure ulcer to right foot RISK FACTORS / RESULTS AND LOCATION IN EMR 1.27 H&P ([facility]): * Hypothyroidism 1.29 Discharge Summary ([facility]): depression per pt TREATMENTS / RESULTS AND LOCATION IN EMR 1.28 Nutrition Therapy Assessment: 1. Recommend a Renal-Protein High/Heart Healthy diet 2. Recommend Suplena PRN if patient takes 50% or less of a meal 1.29 Discharge Summary ([facility]): Heart Healthy diet CDS Signature: Mindi Castaneda RN,CCDS Phone #: [phone] [email or web address] BMI < 18.5 Under weight = 18.5 - 24.9 Healthy = 25.0 - 29.9 Slightly Overweight = 30.0 - 34.9 Obese/Class I = 35.0 - 39.9 Severely Obese/Class II = 40.0 and Over Morbidly Obese/Class III Source: [facility] This is a permanent part of the Medical Record [facility]
--- NOTE | 2020-12-03 21:55 | EKG ---
Test Reason : Blood Pressure : / mmHG Vent. Rate : 077 BPM Atrial Rate : 077 BPM P-R Int : 146 ms QRS Dur : 082 ms QT Int : 384 ms P-R-T Axes : 068 -12 008 degrees QTc Int : 434 ms Normal sinus rhythm Inferior infarct , age undetermined Possible Anterior infarct , age undetermined Abnormal ECG No acute changes compared to 11/11/2020 Confirmed by MARGUERITE VALENTE DO ([id number]), sports editor MAYRA MOORE ([id number]) on 12/03/2020 9:54:56 PM Referred By: Confirmed By:MARGUERITE VALENTE DO
== END 2020-11-29 14:40 | DRG 683 ==
LOC: ERS 18:10 → 2NO 21:47 → ONC 11-27 13:38 → OBSVTOIN 11-28 11:31
PROVIDERS: ADMIT Internal Medicine; ATTEND Internal Medicine
DX: N17.9 Acute kidney failure, unspecified (principal); I13.0 Hypertensive heart and chronic kidney disease with heart failure and stage 1 through stage 4 chronic kidney disease, or unspecified chronic kidney disease; Z68.42 Body mass index [BMI] 45.0-49.9, adult; Z51.5 Encounter for palliative care; Z20.822 Contact with and (suspected) exposure to COVID-19; E78.5 Hyperlipidemia, unspecified; E03.9 Hypothyroidism, unspecified; G62.9 Polyneuropathy, unspecified; K21.9 Gastro-esophageal reflux disease without esophagitis; F41.9 Anxiety disorder, unspecified; M06.9 Rheumatoid arthritis, unspecified; M19.90 Unspecified osteoarthritis, unspecified site; N18.30 Chronic kidney disease, stage 3 unspecified; Z88.0 Allergy status to penicillin; Z88.8 Allergy status to other drugs, medicaments and biological substances; Z79.82 Long term (current) use of aspirin; Z79.890 Hormone replacement therapy; Z79.899 Other long term (current) drug therapy; E66.01 Morbid (severe) obesity due to excess calories
CPT/HCPCS: 36415; 51701; 70450; 71045; 76770; 80048; 80053; 81003; 81015; 82553; 83880; 84443; 84484; 85025; 87086; 93005; 96365; 96376; G0378; J0696; J3490; Q0162